=== PATIENT | male | born 1950 | race Caucasian/White ===

== ENCOUNTER → 2017-02-08 | Outpatient (CLI) | payer OTHER ==
[2017-02-08 08:45] LABS: ABSOLUTE BASOPHILS # (AUTO) 0.1 10^3/uL (0.0-0.2); ABSOLUTE EOSINOPHILS # (AUTO) 0.1 10^3/uL (0.0-0.6); ABSOLUTE LYMPHOCYTES (AUTO) 1.7 10^3/uL (0.5-4.7); ABSOLUTE MONOCYTES (AUTO) 0.6 10^3/uL (0.1-1.4); ABSOLUTE NEUT (AUTO) 4.3 10^3/uL (1.7-8.2); BASOPHILS % (AUTO) 0.8 % (0-2); EOSINOPHILS % (AUTO) 2.1 % (0-6); HEMATOCRIT 41.3 % (37.9-51.0); HEMOGLOBIN 14.2 g/dL (13.5-17.0); HGB HCT DIFFERENCE 1.3; LYMPHOCYTES % (AUTO) 24.2 % (13-45); MEAN CORPUSCULAR HEMOGLOBIN 31.3 pg (27.0-33.4); MEAN CORPUSCULAR HGB CONC 34.3 g/dL (32.0-36.0); MEAN CORPUSCULAR VOLUME 91 fl (80-97); MONOCYTES % (AUTO) 9.5 % (3-13); RED BLOOD COUNT 4.53 10^6/uL (4.35-5.55); RED CELL DISTRIBUTION WIDTH 13.7 % (11.5-14.0); SEGMENTED NEUTROPHILS % (AUTO) 63.4 % (42-78); WHITE BLOOD COUNT 6.8 10^3/uL (4.0-10.5)
[2017-02-08 09:16] LABS: ALANINE AMINOTRANSFERASE 41 U/L (21-72); ALBUMIN 3.8 g/dL (3.5-5.0); ALKALINE PHOSPHATASE 72 U/L (38-126); ANION GAP 12 (5-19); ASPARTATE AMINO TRANSFERASE 25 U/L (17-59); BILIRUBIN,DIRECT 0.3 mg/dL (0.0-0.4); BILIRUBIN,TOTAL 0.7 mg/dL (0.2-1.3); BLOOD UREA NITROGEN 19 mg/dL (7-20); CALCIUM 9.4 mg/dL (8.4-10.2); CARBON DIOXIDE 25 mmol/L (22-30); CHLORIDE 107 mmol/L (98-107); CHOLESTEROL 144.61 mg/dL (0-200); CREATININE RESULT 1.07 mg/dL (0.52-1.25); Direct HDL 54 mg/dL (>40); GLUCOSE 139 mg/dL (75-110); POTASSIUM 4.2 mmol/L (3.6-5.0); SODIUM 143.8 mmol/L (137-145); TOTAL PROTEIN 6.9 g/dL (6.3-8.2); TRIGLYCERIDES 71 mg/dL (<150)
[2017-02-08 09:27] LABS: DIRECT LDL 68 mg/dL (<100)
== END ==
LOC: CCC 07:37
DX: I10 Essential (primary) hypertension (principal); E11.9 Type 2 diabetes mellitus without complications
CPT/HCPCS: 36415; 80053; 80061; 83036; 84153; 84443; 85025

== ENCOUNTER 2018-02-15 08:51 | Emergency (ER) | payer MEDICARE, OTHER ==
--- NOTE | 2018-02-15 10:03 | ER Document Report ---
ED General - General Chief Complaint: Ear Pain Stated Complaint: HEARING LOSS, POSSIBLE SNAKE BITE Time Seen by Provider: 02/15/18 09:23 Mode of Arrival: Ambulatory Information source: Patient Notes: 67-year-old male presents with complaints of new onset difficulty hearing right ear. Patient notes he was clearing his ear with a Q-tip got some wax and since then is unable to hear. 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 IN LAST 30 DAYS: No - HPI Onset: This morning Onset/Duration: Sudden Quality of pain: No pain Severity: Mild Pain Level: Denies Associated symptoms: Other Exacerbated by: Denies Relieved by: Denies Similar symptoms previously: No Recently seen / treated by doctor: No - Related Data Allergies/Adverse Reactions: No Known Allergies Allergy (Unverified 07/14/14 12:18) Past Medical History - Social History Smoking Status: Never Smoker Cigarette use (# per day): No Chew tobacco use (# tins/day): No Smoking Education Provided: No Frequency of alcohol use: None Drug Abuse: None Family History: DM Patient has suicidal ideation: No Patient has homicidal ideation: No - Past Medical History Cardiac Medical History: Reports: Hx Hypertension Endocrine Medical History: Reports: Hx Diabetes Mellitus Type 2 Renal/ Medical History: Denies: Hx Peritoneal Dialysis - Immunizations Hx Diphtheria, Pertussis, Tetanus Vaccination: Yes Review of Systems - Review of Systems Notes: REVIEW OF SYSTEMS: CONSTITUTIONAL : Denies fever, chills, or sweats. Denies recent illness. EENT: Difficulty hearing right ear CARDIOVASCULAR: Denies chest pain. Denies palpitations or racing or irregular heart beat. Denies ankle edema. RESPIRATORY: Denies cough, cold, or chest congestion. Denies shortness of breath, difficulty breathing, or wheezing. GASTROINTESTINAL: Denies abdominal pain or distention. Denies nausea, vomiting , or diarrhea. Denies blood in vomitus, stools, or per rectum. Denies black, tarry stools. Denies constipation. GENITOURINARY: Denies difficulty urinating, painful urination, burning, frequency, blood in urine, or discharge. MUSCULOSKELETAL: Denies back or neck pain or stiffness. Denies joint pain or swelling. SKIN: Denies rash, lesions or sores. HEMATOLOGIC : Denies easy bruising or bleeding. LYMPHATIC: Denies swollen, enlarged glands. NEUROLOGICAL: Denies confusion or altered mental status. Denies passing out or loss of consciousness. Denies dizziness or lightheadedness. Denies headache. Denies weakness or paralysis or loss of use of either side. Denies problems with gait or speech. Denies sensory loss, numbness, or tingling. Denies seizures. PSYCHIATRIC: Denies anxiety or stress. Denies depression, suicidal ideation, or homicidal ideation. ALL OTHER SYSTEMS REVIEWED AND NEGATIVE. Dictation was performed using [employer] recognition software PHYSICAL EXAMINATION: GENERAL: Well-appearing, well-nourished and in no acute distress. HEAD: Atraumatic, normocephalic. EYES: Pupils equal round and reactive to light, extraocular movements intact, sclera anicteric, conjunctiva are normal. ENT: Cerumen impaction of the right ear scarring tissue left ear. NECK: Normal range of motion, supple without lymphadenopathy LUNGS: Breath sounds clear to auscultation bilaterally and equal. No wheezes rales or rhonchi. HEART: Regular rate and rhythm without murmurs ABDOMEN: Soft, nontender, nondistended abdomen. No guarding, no rebound. No masses appreciated. Musculoskeletal: Normal range of motion, no pitting or edema. No cyanosis. NEUROLOGICAL: Cranial nerves grossly intact. Normal speech, normal gait. Normal sensory, motor exams PSYCH: Normal mood, normal affect. SKIN: Small puncture of the right anterior ankle no swelling no edema no drainage Physical Exam - Vital signs Vitals: Temp Pulse Resp BP Pulse Ox 98.3 F 78 18 173/87 H 95 02/15/18 08:58 02/15/18 08:58 02/15/18 08:58 02/15/18 08:58 02/15/18 08:58 Course - Re-evaluation Re-evalutation: 02/15/18 10:14 Patient snakebite is quite benign there is no sign of infectious process or venemous involvement, lab work ordered nonetheless to evaluate, his right ear had quite a bit of cerumen, this was flushed and patient notes symptoms have resolved completely and that he can hear with no difficulty now There is a small amount of ulceration from previous trauma that the patient caused from using a Q-tip will start him on oral antibiotics 02/15/18 10:16 02/15/18 17:16 After performing a Medical Screening Examination, I estimate there is LOW risk for malignant otitis media, mastoiditis, MENINGITIS, or ACUTE CORONARY SYNDROME , thus I consider the discharge disposition reasonable. I have reevaluated this patient multiple times and no significant life threatening changes are noted. The patient and I have discussed the diagnosis and risks, and we agree with discharging home to follow-up on an outpatient basis with the understanding that symptoms and presentations can change. We also discussed returning to the Emergency Department immediately if new or worsening symptoms occur. We have discussed the symptoms which are most concerning (e.g., high fevers, confusion) that necessitate immediate return. - Vital Signs Vital signs: Temp Pulse Resp BP Pulse Ox 99.4 F 75 18 145/82 H 95 02/15/18 10:42 02/15/18 10:42 02/15/18 08:58 02/15/18 10:42 02/15/18 10:42 - Laboratory Result Diagrams: 02/15/18 09:43 02/15/18 09:43 Laboratory results interpreted by me: 02/15/18 09:43 Glucose 195 H Procedures - Additional Procedures cerumen decompaction Time performed: 10:15 - using luke warm water the right ear was flushed and large cerumen removed Discharge - Discharge Clinical Impression: Impacted cerumen of right ear Loss of hearing Qualifiers: Hearing loss type: unspecified Laterality: right Qualified Code(s): H91.91 - Unspecified hearing loss, right ear Snake bite Qualifiers: Encounter type: initial encounter Qualified Code(s): W59.11XA - Bitten by nonvenomous snake, initial encounter Condition: Stable Disposition: HOME, SELF-CARE Instructions: Cerumen Impaction ([facility]) Prescriptions: Cephalexin Monohydrate [Keflex 500 mg Capsule] 500 mg PO Q6H 5 Days capsule Referrals: SHITAL BARKER MD [Primary Care Provider] - Follow up as needed
[2018-02-15 10:04] LABS: ABSOLUTE EOSINOPHILS # (AUTO) 0.1 10^3/uL (0.0-0.6); ABSOLUTE LYMPHOCYTES (AUTO) 1.5 10^3/uL (0.5-4.7); ABSOLUTE MONOCYTES (AUTO) 0.6 10^3/uL (0.1-1.4); ABSOLUTE NEUT (AUTO) 4.6 10^3/uL (1.7-8.2); BASOPHILS % (AUTO) 0.6 % (0-2); EOSINOPHILS % (AUTO) 1.8 % (0-6); HEMATOCRIT 43.2 % (37.9-51.0); HEMOGLOBIN 14.6 g/dL (13.5-17.0); LYMPHOCYTES % (AUTO) 22.5 % (13-45); MEAN CORPUSCULAR HEMOGLOBIN 30.6 pg (27.0-33.4); MEAN CORPUSCULAR HGB CONC 33.8 g/dL (32.0-36.0); MEAN CORPUSCULAR VOLUME 91 fl (80-97); MONOCYTES % (AUTO) 8.6 % (3-13); PLATELET COUNT 157 10^3/uL (150-450); RED BLOOD COUNT 4.77 10^6/uL (4.35-5.55); RED CELL DISTRIBUTION WIDTH 13.3 % (11.5-14.0); SEGMENTED NEUTROPHILS % (AUTO) 66.5 % (42-78); TOTAL CELLS COUNTED % (AUTO) 100 %; WHITE BLOOD COUNT 6.9 10^3/uL (4.0-10.5)
[2018-02-15 10:21] LABS: INTERNATIONAL RATION (INR) 0.99; PROTHROMBIN TIME 13.6 SEC (11.4-15.4)
[2018-02-15 10:25] LABS: ALANINE AMINOTRANSFERASE 41 U/L (21-72); ALBUMIN 3.8 g/dL (3.5-5.0); ALKALINE PHOSPHATASE 61 U/L (38-126); ANION GAP 10 (5-19); ASPARTATE AMINO TRANSFERASE 24 U/L (17-59); BILIRUBIN,DIRECT 0.3 mg/dL (0.0-0.4); BILIRUBIN,TOTAL 0.6 mg/dL (0.2-1.3); BLOOD UREA NITROGEN 18 mg/dL (7-20); CALCIUM 9.1 mg/dL (8.4-10.2); CARBON DIOXIDE 28 mmol/L (22-30); CHLORIDE 105 mmol/L (98-107); GLUCOSE 195 mg/dL (75-110); POTASSIUM 4.1 mmol/L (3.6-5.0); TOTAL PROTEIN 6.8 g/dL (6.3-8.2)
[2018-02-15 10:47] VITALS: BP 145/82
== END 2018-02-15 11:01 | disposition home or self-care (01) ==
LOC: ER 08:51
DX: H61.21 Impacted cerumen, right ear (principal); H91.91 Unspecified hearing loss, right ear; S91.051A Open bite, right ankle, initial encounter; W59.11XA Bitten by nonvenomous snake, initial encounter; I10 Essential (primary) hypertension; E11.9 Type 2 diabetes mellitus without complications
CPT/HCPCS: 36415; 80053; 85025; 85610; 99283

== ENCOUNTER 2018-10-09 10:19 | Emergency (ER) | payer MEDICARE, OTHER ==
--- NOTE | 2018-10-09 10:53 | ER Document Report ---
ED Medical Screen (RME) - General Chief Complaint: Head Injury with LOC Stated Complaint: HEAD INJURY Time Seen by Provider: 10/09/18 10:32 TRAVEL OUTSIDE OF THE [place] IN LAST 30 DAYS: No - Related Data Allergies/Adverse Reactions: No Known Allergies Allergy (Verified 10/09/18 10:19) Past Medical History - Past Medical History Cardiac Medical History: Reports: Hx Hypertension Endocrine Medical History: Reports: Hx Diabetes Mellitus Type 2 Renal/ Medical History: Denies: Hx Peritoneal Dialysis - Immunizations Hx Diphtheria, Pertussis, Tetanus Vaccination: Yes Physical Exam - Vital signs Vitals: Temp Pulse Resp BP Pulse Ox 98.8 F 90 18 163/85 H 94 10/09/18 10:24 10/09/18 10:24 10/09/18 10:24 10/09/18 10:24 10/09/18 10:24 Course - Re-evaluation Re-evalutation: 10/09/18 10:53 68-year-old man that presents for evaluation of a fall hitting the side of a table with positive loss of consciousness. I have seen and evaluated this patient in rapid medical screening exam fashion. I have initiated a evaluation and workup, this patient will require further investigation evaluation and disposition determination by secondary provider. - Vital Signs Vital signs: Temp Pulse Resp BP Pulse Ox 98.8 F 90 18 163/85 H 94 10/09/18 10:24 10/09/18 10:24 10/09/18 10:24 10/09/18 10:24 10/09/18 10:24 Doctor's Discharge - Discharge Referrals: SHITAL BARKER MD [Primary Care Provider] - Follow up as needed
[2018-10-09] MEDS ORDERED: LIDOCAINE 4%/TETRACAINE 0.5%/EPI 0.18% 5 ML TOPICAL SOLN TOP ONE (10:54)
--- NOTE | 2018-10-09 11:34 | RADIOLOGY REPORT (SQ) ---
EXAM DESCRIPTION: CT HEAD WITHOUT COMPLETED DATE/TIME: 10/09/2018 11:14 am REASON FOR STUDY: fall, LOC COMPARISON: None. TECHNIQUE: Axial images acquired through the brain without intravenous contrast. Images reviewed wi th bone, brain and subdural windows. Additional sagittal and coronal reconstructions were generated. Images stored on PACS. All CT scanners at this facility use dose modulation, iterative reconstruction, and/or weight based d osing when appropriate to reduce radiation dose to as low as reasonably achievable (ALARA). [facility]: Dose Right [facility]: CareDose [facility]: Dose Right [facility]: Teradose 4D [facility]: [employer] RADIATION DOSE: CT Rad equipment meets quality standard of care and radiation dose reduction techniq ues were employed. CTDIvol: 53.2 mGy. DLP: 1044 mGy-cm. mGy. LIMITATIONS: None. FINDINGS: VENTRICLES: Normal size and contour. CEREBRUM: No masses. No hemorrhage. No midline shift. No evidence for acute infarction. Normal gra y/white matter differentiation. No areas of low density in the white matter. CEREBELLUM: No masses. No hemorrhage. No alteration of density. No evidence for acute infarction. EXTRAAXIAL SPACES: No fluid collections. No masses. ORBITS AND GLOBE: No intra- or extraconal masses. Normal contour of globe without masses. CALVARIUM: No fracture. PARANASAL SINUSES: No fluid or mucosal thickening. SOFT TISSUES: No mass or hematoma. OTHER: No other significant finding. IMPRESSION: NO ACUTE INTRACRANIAL IMAGING FINDINGS. EVIDENCE OF ACUTE STROKE: NO. COMMENT: Quality ID # [id number]: Final reports with documentation of one or more dose reduction techniques (e.g., Automated exposure control, adjustment of the mA and/or kV according to patient size, use of iterative reconstruction technique) TECHNICAL DOCUMENTATION: JOB ID: [id number] [employer]- All Rights Reserved Reading location - IP/workstation name: [email or web address]
--- NOTE | 2018-10-09 11:37 | RADIOLOGY REPORT (SQ) ---
EXAM DESCRIPTION: CT CERVICAL SPINE WITHOUT COMPLETED DATE/TIME: 10/09/2018 11:14 am REASON FOR STUDY: fall, LOC COMPARISON: None. TECHNIQUE: Axial images acquired through the cervical spine without intravenous contrast. Images re viewed with lung, soft tissue and bone windows. Reconstructed coronal and sagittal MPR images review ed. Images stored on PACS. All CT scanners at this facility use dose modulation, iterative reconstruction, and/or weight based d osing when appropriate to reduce radiation dose to as low as reasonably achievable (ALARA). [facility]: Dose Right [facility]: CareDose [facility]: Dose Right [facility]: Teradose 4D [facility]: [employer] RADIATION DOSE: CT Rad equipment meets quality standard of care and radiation dose reduction techniq ues were employed. CTDIvol: 24.2 mGy. DLP: 488 mGy-cm. mGy. LIMITATIONS: None. FINDINGS: ALIGNMENT: Anatomic. MINERALIZATION: Normal. VERTEBRAL BODIES: No fractures or dislocation. DISCS: Moderate multilevel disc degenerative disease. FACETS, LATERAL MASSES, POSTERIOR ELEMENTS: No fractures. No dislocation. No acute findings. HARDWARE: None in the spine. VISUALIZED RIBS: No fractures. LUNG APICES AND SOFT TISSUES: No significant or acute findings. OTHER: No other significant finding. IMPRESSION: No fracture or static subluxation of the cervical spine. TECHNICAL DOCUMENTATION: JOB ID: [id number] Quality ID # [id number]: Final reports with documentation of one or more dose reduction techniques (e.g., Au tomated exposure control, adjustment of the mA and/or kV according to patient size, use of iterative reconstruction technique) 2010 [employer]- All Rights Reserved Reading location - IP/workstation name: [email or web address]
--- NOTE | 2018-10-09 11:48 | ER Document Report ---
ED General - General Chief Complaint: Head Injury with LOC Stated Complaint: HEAD INJURY Time Seen by Provider: 10/09/18 10:32 Mode of Arrival: Ambulatory Information source: Patient Notes: 68-year-old male presents emergency department status post fall. Patient states that he was trying to get up onto a chair when he slipped and fell backward hitting his head on a table. Family witnessed the fall. They state that the patient did lose consciousness. Patient was able to get up afterwards. Family noticed a laceration to his scalp and wanted him to come to the emergency department for evaluation. Tetanus is up-to-date. Patient denies any vision changes, speech changes, numbness, tingling, weakness. Patient denies being on any anticoagulants. TRAVEL OUTSIDE OF THE [place] IN LAST 30 DAYS: No - HPI Onset: Just prior to arrival Onset/Duration: Sudden Quality of pain: Dull Severity: Mild Associated symptoms: None Exacerbated by: Denies Relieved by: Denies Similar symptoms previously: No Recently seen / treated by doctor: No - Related Data Allergies/Adverse Reactions: No Known Allergies Allergy (Verified 10/09/18 10:19) Past Medical History - General Information source: Patient - Social History Smoking Status: Never Smoker Family History: DM Patient has suicidal ideation: No Patient has homicidal ideation: No - Past Medical History Cardiac Medical History: Reports: Hx Hypertension Endocrine Medical History: Reports: Hx Diabetes Mellitus Type 2 Renal/ Medical History: Denies: Hx Peritoneal Dialysis - Immunizations Hx Diphtheria, Pertussis, Tetanus Vaccination: Yes Review of Systems - Review of Systems EENT: No symptoms reported Cardiovascular: No symptoms reported Respiratory: No symptoms reported Gastrointestinal: No symptoms reported Genitourinary: No symptoms reported Musculoskeletal: No symptoms reported Skin: Lesions Hematologic/Lymphatic: No symptoms reported Neurological/Psychological: No symptoms reported -: Yes All other systems reviewed and negative Physical Exam - Vital signs Vitals: Temp Pulse Resp BP Pulse Ox 98.8 F 90 18 163/85 H 94 10/09/18 10:24 10/09/18 10:24 10/09/18 10:24 10/09/18 10:24 10/09/18 10:24 - Notes Notes: PHYSICAL EXAMINATION: GENERAL: Well-appearing, well-nourished and in no acute distress. HEAD: normocephalic. 0.25cm superficial Laceration to the posterior scalp. EYES: Pupils equal round and reactive to light, extraocular movements intact, sclera anicteric, conjunctiva are normal. ENT: Nares patent, oropharynx clear without exudates. Moist mucous membranes. NECK: Normal range of motion, supple without lymphadenopathy. No cervical spine tenderness to palpation. LUNGS: Breath sounds clear to auscultation bilaterally and equal. No wheezes rales or rhonchi. HEART: Regular rate and rhythm without murmurs ABDOMEN: Soft, nontender, nondistended abdomen. No guarding, no rebound. No masses appreciated. Musculoskeletal: Normal range of motion, no pitting or edema. No cyanosis. NEUROLOGICAL: Cranial nerves grossly intact. Normal speech, normal gait. Normal sensory, motor exams PSYCH: Normal mood, normal affect. SKIN: Warm, Dry, normal turgor, 0.25cm superficial laceration to the posterior scalp. Course - Re-evaluation Re-evalutation: 10/09/18 11:48 Laceration is very superficial. Non-gaping. Sutre/staple not necessary. 10/09/18 12:19 CT head, cervical spine, pelvis are all within normal limits. No acute process identified. Patient will be discharged home to follow-up with his primary care physician this week. - Vital Signs Vital signs: Temp Pulse Resp BP Pulse Ox 98.8 F 90 18 163/85 H 94 10/09/18 10:24 10/09/18 10:24 10/09/18 10:24 10/09/18 10:24 10/09/18 10:24 Discharge - Discharge Clinical Impression: Laceration Fall Qualifiers: Encounter type: initial encounter Qualified Code(s): W19.XXXA - Unspecified fall, initial encounter Condition: Good Disposition: HOME, SELF-CARE Instructions: Laceration Care ([facility]) Additional Instructions: Follow up with your primary care physician this week. Take medication as directed. Take over the counter medication as needed for discomfort. Return to the emergency department for fever, chills, worsening headache, vision changes, speech changes, numbness, tingling, or weakness. Referrals: SHITAL BARKER MD [Primary Care Provider] - Follow up as needed
--- NOTE | 2018-10-09 11:53 | RADIOLOGY REPORT (SQ) ---
EXAM DESCRIPTION: PELVIS AP COMPLETED DATE/TIME: 10/09/2018 11:29 am REASON FOR STUDY: fall, LOC COMPARISON: None. NUMBER OF VIEWS: One view TECHNIQUE: AP Pelvis LIMITATIONS: None. FINDINGS: No acute fracture or bony abnormality identified. The SI joints are symmetrical. IMPRESSION: Normal pelvis. TECHNICAL DOCUMENTATION: JOB ID: [id number] SC-69 2010 [employer]- All Rights Reserved Reading location - IP/workstation name: [email or web address]
[2018-10-09 12:34] VITALS: BP 154/86
== END 2018-10-09 12:34 | disposition home or self-care (01) ==
LOC: ER 10:19
DX: S01.01XA Laceration without foreign body of scalp, initial encounter (principal); W01.190A Fall on same level from slipping, tripping and stumbling with subsequent striking against furniture, initial encounter; Y93.89 Activity, other specified; R55 Syncope and collapse; E11.9 Type 2 diabetes mellitus without complications; I10 Essential (primary) hypertension
CPT/HCPCS: 70450; 72125; 72170; 99284; J3490

== ENCOUNTER 2019-01-07 07:30 | Emergency (ER) | payer MEDICARE, OTHER ==
--- NOTE | 2019-01-07 07:46 | ER Document Report ---
ED General - General Chief Complaint: Flank Pain Stated Complaint: URINARY ISSUE Time Seen by Provider: 01/07/19 07:44 Primary Care Provider: SHITAL BARKER MD [Primary Care Provider] - Follow up in 3-5 days Notes: Patient is a 68-year-old male that presents to the emergency department for chief complaint of right flank pain. Patient reports his pain started 3 or 4 days ago describes as a constant ache is been going on over the period of time. Denies any injuries that he is aware of. He has a history of kidney stones, but he states that it does not feel as bad as when he had a kidney stone several years ago. Denies any any fevers, chills, admits to having some nausea but no vomiting. Denies any diarrhea. Denies any chest pain, shortness of breath, difficulty breathing. Past Medical History: Hypertension, diabetes mellitus, kidney stones Past Surgical History: Denies surgical history Social History: Denies tobacco, alcohol or drug use. Family History: Reviewed and noncontributory for presenting illness Allergies: Reviewed, see documented allergy list. REVIEW OF SYSTEMS: Other than noted above, the 12 point review of systems was reviewed with the patient and were negative, all pertinent findings are included in the HPI. PHYSICAL EXAMINATION: Vital signs reviewed, nursing noted reviewed. GENERAL: Well-appearing, well-nourished and in no acute distress. HEAD: Atraumatic, normocephalic. EYES: Eyes appear normal, extraocular movements intact, sclera anicteric, conjunctiva are normal. ENT: nares patent, oropharynx clear without exudates. Moist mucous membranes. NECK: Normal range of motion, supple without lymphadenopathy LUNGS: Breath sounds clear to auscultation bilaterally and equal. No wheezes rales or rhonchi. HEART: Regular rate and rhythm without murmurs ABDOMEN: Soft, right flank tenderness with palpation, no anterior abdominal tenderness, normoactive bowel sounds. No rebound, guarding, or rigidity. No masses appreciated. EXTREMITIES: Nontender, good range of motion, no pitting or edema. NEUROLOGICAL: No focal neurological deficits. Moves all extremities spontaneously Motor and sensory grossly intact on exam. PSYCH: Normal mood, normal affect. SKIN: Warm, Dry, normal turgor, no rashes or lesions noted on exposed skin TRAVEL OUTSIDE OF THE [place] IN LAST 30 DAYS: No - Related Data Allergies/Adverse Reactions: No Known Allergies Allergy (Verified 01/07/19 07:31) Past Medical History - Social History Smoking Status: Never Smoker Family History: Reviewed & Not Pertinent, DM - Past Medical History Cardiac Medical History: Reports: Hx Hypertension Endocrine Medical History: Reports: Hx Diabetes Mellitus Type 2 Renal/ Medical History: Denies: Hx Peritoneal Dialysis - Immunizations Hx Diphtheria, Pertussis, Tetanus Vaccination: Yes Physical Exam - Vital signs Vitals: Temp Pulse Resp BP Pulse Ox 97.7 F 79 16 162/107 H 96 01/07/19 07:34 01/07/19 07:34 01/07/19 07:34 01/07/19 07:34 01/07/19 07:34 Course - Re-evaluation Re-evalutation: Patient seen and examined vital signs reviewed. Laboratory data and imaging were ordered as appropriate for the patient's presenting symptoms and complaint, with consideration of any critical or life threatening conditions that may be associated with their obtained history and exam as noted above. Patient was treated with IV fluids and Toradol Results were reviewed when available and demonstrated negative CT imaging, no signs of renal stone or obstruction, blood work and urinalysis were negative as well The patient was re-evaluated and was improved, was given a dose of Tylenol and Robaxin Evaluation was most consistent with right flank pain, uncertain etiology, workup was negative today, will prescribe Robaxin, advised Flomax as well given the patient stated he was having some incomplete bladder voiding, and advised follow-up with primary care. Results were discussed with the patient at this point, after careful consideration I feel that that patient can be discharged from the emergency department, the patient was educated treatments and reasons to return to the emergency department based on their presumed diagnosis as noted above, they were advised to followup with a primary care physician in 2-3 days. Patient was agreeable to plan of care. *Note is created using voice recognition software and may contain spelling, syntax or grammatical errors. Abdomen/Pelvis CT 01/07/19 07:55 IMPRESSION: Nonobstructing renal calculi. No acute findings. Abdomen/Pelvis CT 01/07/19 07:55 IMPRESSION: Nonobstructing renal calculi. No acute findings. - Vital Signs Vital signs: Temp Pulse Resp BP Pulse Ox 97.9 F 71 17 159/95 H 98 01/07/19 09:43 01/07/19 09:43 01/07/19 09:43 01/07/19 09:43 01/07/19 09:43 - Laboratory Result Diagrams: 01/07/19 08:24 01/07/19 08:24 Discharge - Discharge Clinical Impression: Flank pain Condition: Stable Disposition: HOME, SELF-CARE Instructions: Flank Pain ([facility]) Additional Instructions: Take all medications as prescribed, if your symptoms worsen or not improving, do not hesitate to return to the emergency department to be reevaluated. Please return to the emergency department if you have any worsening, or concern of your symptoms. Please return to the emergency department if you develop chest pain, difficulty breathing, severe abdominal pain, or ongoing vomiting. Please follow-up with your primary care physician in 2-3 days and any other recommended physicians. If prescribed, take all medications as directed. If you have any questions or concerns do not hesitate to return the emergency department for evaluation. Prescriptions: Methocarbamol [Robaxin 500 mg Tablet] 500 mg PO TID PRN #20 tablet PRN Reason: back pain Tamsulosin HCl [Flomax] 0.4 mg PO DAILY #15 cap.er.24h Referrals: SHITAL BARKER MD [Primary Care Provider] - Follow up in 3-5 days
[2019-01-07] MEDS ORDERED: NORMAL SALINE 1000 ML 1,000 ML IV ONE (07:55)
[2019-01-07] MEDS ORDERED: KETOROLAC TROMETHAMINE INJ/PF 30 MG/1 ML SDV IV ONE (07:55)
[2019-01-07 08:09] LABS: APPEARANCE,URINE CLEAR; BILIRUBIN,URINE NEGATIVE (NEGATIVE); COLOR,URINE YELLOW; GLUCOSE, URINE NEGATIVE (NEGATIVE); KETONES,URINE NEGATIVE (NEGATIVE); LEUKOCYTE ESTERASE,URINE NEGATIVE (NEGATIVE); NITRITE,URINE NEGATIVE (NEGATIVE); PROTEIN,URINE NEGATIVE (NEGATIVE); URINE SPECIFIC GRAVITY 1.014; UROBILINOGEN,URINE NEGATIVE mg/dL (<2.0)
[2019-01-07 08:44] LABS: ABSOLUTE EOSINOPHILS # (AUTO) 0.1 10^3/uL (0.0-0.6); ABSOLUTE LYMPHOCYTES (AUTO) 1.2 10^3/uL (0.5-4.7); ABSOLUTE MONOCYTES (AUTO) 0.5 10^3/uL (0.1-1.4); ABSOLUTE NEUT (AUTO) 3.6 10^3/uL (1.7-8.2); BASOPHILS % (AUTO) 0.5 % (0-2); EOSINOPHILS % (AUTO) 1.4 % (0-6); HEMATOCRIT 43.2 % (37.9-51.0); HEMOGLOBIN 14.8 g/dL (13.5-17.0); LYMPHOCYTES % (AUTO) 21.6 % (13-45); MEAN CORPUSCULAR HEMOGLOBIN 31.6 pg (27.0-33.4); MEAN CORPUSCULAR HGB CONC 34.3 g/dL (32.0-36.0); MEAN CORPUSCULAR VOLUME 92 fl (80-97); MONOCYTES % (AUTO) 9.4 % (3-13); PLATELET COUNT 158 10^3/uL (150-450); RED CELL DISTRIBUTION WIDTH 13.9 % (11.5-14.0); SEGMENTED NEUTROPHILS % (AUTO) 67.1 % (42-78); TOTAL CELLS COUNTED % (AUTO) 100 %; WHITE BLOOD COUNT 5.4 10^3/uL (4.0-10.5)
--- NOTE | 2019-01-07 08:47 | RADIOLOGY REPORT (SQ) ---
EXAM DESCRIPTION: CT ABD/PELVIS NO ORAL OR IV COMPLETED DATE/TIME: 01/07/2019 8:11 am REASON FOR STUDY: right flank pain COMPARISON: None. TECHNIQUE: CT scan of the abdomen and pelvis performed without intravenous or oral contrast. Images reviewed with lung, soft tissue, and bone windows. Reconstructed coronal and sagittal MPR images revi ewed. All images stored on PACS. All CT scanners at this facility use dose modulation, iterative reconstruction, and/or weight based d osing when appropriate to reduce radiation dose to as low as reasonably achievable (ALARA). [facility]: Dose Right [facility]: CareDose [facility]: Dose Right [facility]: Teradose 4D [facility]: Smart [facility] RADIATION DOSE: CT Rad equipment meets quality standard of care and radiation dose reduction techniq ues were employed. CTDIvol: 17.8 mGy. DLP: 1105 mGy-cm.mGy. LIMITATIONS: None. FINDINGS: LOWER CHEST: No significant findings. No nodules or infiltrates. NON-CONTRASTED LIVER, SPLEEN, ADRENALS: Evaluation limited by lack of IV contrast. No identified sign ificant masses. PANCREAS: No masses. No peripancreatic inflammatory changes. GALLBLADDER: No identified stones by CT criteria. No inflammatory changes to suggest cholecystitis. RIGHT KIDNEY AND URETER: No suspicious masses. Assessment limited by lack of IV contrast. Renal meghan culi measuring up to 1 mm. No hydronephrosis or hydroureter. LEFT KIDNEY AND URETER: No suspicious masses. Assessment limited by lack of IV contrast. Renal calc esthela measuring 3 mm. No hydronephrosis or hydroureter. AORTA AND RETROPERITONEUM: No aneurysm. No retroperitoneal masses or adenopathy. BOWEL AND PERITONEAL CAVITY: No obvious masses or inflammatory changes. No free fluid. APPENDIX: Normal. PELVIS, BLADDER, AND ABDOMINAL WALL:No abnormal masses. No free fluid. Bladder normal. BONES: No significant findings. OTHER: No other significant finding. IMPRESSION: Nonobstructing renal calculi. No acute findings. COMMENT: Quality ID # [id number]: Final reports with documentation of one or more dose reduction techniques (e.g., Automated exposure control, adjustment of the mA and/or kV according to patient size, use of iterative reconstruction technique) TECHNICAL DOCUMENTATION: JOB ID: [id number] [employer]- All Rights Reserved Reading location - IP/workstation name: [email or web address]
[2019-01-07 08:58] LABS: ALANINE AMINOTRANSFERASE 52 U/L (21-72); ALBUMIN 3.8 g/dL (3.5-5.0); ALKALINE PHOSPHATASE 70 U/L (38-126); ANION GAP 10 (5-19); ASPARTATE AMINO TRANSFERASE 30 U/L (17-59); BILIRUBIN,DIRECT 0.3 mg/dL (0.0-0.4); BILIRUBIN,TOTAL 0.7 mg/dL (0.2-1.3); BLOOD UREA NITROGEN 19 mg/dL (7-20); CALCIUM 9.2 mg/dL (8.4-10.2); CARBON DIOXIDE 25 mmol/L (22-30); CHLORIDE 106 mmol/L (98-107); GLUCOSE 110 mg/dL (75-110); POTASSIUM 4.2 mmol/L (3.6-5.0); SODIUM 140.7 mmol/L (137-145); TOTAL PROTEIN 6.9 g/dL (6.3-8.2)
[2019-01-07] MEDS ORDERED: METHOCARBAMOL 500 MG TABLET PO ONE (09:06)
[2019-01-07] MEDS ORDERED: ACETAMINOPHEN 325 MG TABLET PO ONE (09:06)
[2019-01-07 09:45] VITALS: BP 159/95
== END 2019-01-07 09:45 | disposition home or self-care (01) ==
LOC: ER 07:30
DX: R10.9 Unspecified abdominal pain (principal); I10 Essential (primary) hypertension; E11.9 Type 2 diabetes mellitus without complications; Z87.442 Personal history of urinary calculi
CPT/HCPCS: 99284; 96361; 96374; 36415; 87086; 85025; 80053; 81001; 74176; A9270; J1885; J7030

== ENCOUNTER 2019-03-10 08:40 | Inpatient (IN) | payer MEDICARE, OTHER ==
[2019-03-10 09:48] LABS: ABSOLUTE EOSINOPHILS # (AUTO) 0.1 10^3/uL (0.0-0.6); ABSOLUTE LYMPHOCYTES (AUTO) 1.3 10^3/uL (0.5-4.7); ABSOLUTE MONOCYTES (AUTO) 0.6 10^3/uL (0.1-1.4); ABSOLUTE NEUT (AUTO) 4.7 10^3/uL (1.7-8.2); BASOPHILS % (AUTO) 0.7 % (0-2); HEMATOCRIT 43.1 % (37.9-51.0); LYMPHOCYTES % (AUTO) 18.8 % (13-45); MEAN CORPUSCULAR HEMOGLOBIN 31.7 pg (27.0-33.4); MEAN CORPUSCULAR HGB CONC 34.7 g/dL (32.0-36.0); MEAN CORPUSCULAR VOLUME 91 fl (80-97); MONOCYTES % (AUTO) 8.3 % (3-13); PLATELET COUNT 172 10^3/uL (150-450); RED BLOOD COUNT 4.72 10^6/uL (4.35-5.55); RED CELL DISTRIBUTION WIDTH 13.9 % (11.5-14.0); SEGMENTED NEUTROPHILS % (AUTO) 70.2 % (42-78); TOTAL CELLS COUNTED % (AUTO) 100 %; WHITE BLOOD COUNT 6.7 10^3/uL (4.0-10.5)
[2019-03-10 10:12] LABS: ALANINE AMINOTRANSFERASE 30 U/L (21-72); ALKALINE PHOSPHATASE 66 U/L (38-126); ANION GAP 11 (5-19); ASPARTATE AMINO TRANSFERASE 22 U/L (17-59); BILIRUBIN,DIRECT 0.3 mg/dL (0.0-0.4); BILIRUBIN,TOTAL 0.9 mg/dL (0.2-1.3); BLOOD UREA NITROGEN 24 mg/dL (7-20); CALCIUM 9.4 mg/dL (8.4-10.2); CARBON DIOXIDE 22 mmol/L (22-30); CHLORIDE 108 mmol/L (98-107); CREATINE KINASE 72 U/L (55-170); GLUCOSE 108 mg/dL (75-110); SODIUM 141.4 mmol/L (137-145); TOTAL PROTEIN 7.2 g/dL (6.3-8.2)
[2019-03-10 10:24] LABS: CREATINE KINASE MB 0.35 ng/mL (<4.55); TROPONIN I < 0.012 ng/mL
--- NOTE | 2019-03-10 10:27 | ER Document Report ---
ED Neuro Symptoms/Deficit - General Chief Complaint: Dizziness Stated Complaint: GENERAL WEAKNESS Time Seen by Provider: 03/10/19 10:13 Primary Care Provider: SHITAL BARKER MD [Primary Care Provider] - Follow up as needed TRAVEL OUTSIDE OF THE [place] IN LAST 30 DAYS: No - HPI Notes: Patient is a 69-year-old male that presents to the emergency department for chief complaint of dizziness. Patient reports dizziness with position changes for the week. He states that it feels like the room is spinning. It does seem to be improved when he is looking down and worse when he looks up. The dizziness fluctuates in intensity but has been constant for the last week. He also has noticed intermittent numbness in his left hand and arm. The numbness in the hand began a few days ago and has also been fluctuating. Patient's states for the last few days he has been having a hard time ambulating and seems to be falling to his left side. Patient began having hallucinations of spiders that family noticed today. He has not had any chest pain, shortness of breath, vomiting, or fevers. He does report chills intermittently over the last few days as well. Patient has no personal history of stroke. Patient is also complaining of headache that has been mild throbbing and located on the right side of his head. Headache is also been intermittent for the last few days. He denies any vision or speech changes. Past Medical History: Hypertension, diabetes Past Surgical History: Reviewed in chart Social History: Denies drugs alcohol and tobacco Family History: Reviewed and noncontributory for presenting illness Allergies: Reviewed, see documented allergy list. REVIEW OF SYSTEMS: CONSTITUTIONAL : No fever chills No diaphoresis No recent illness EENT: No vision changes No congestion No sore throat CARDIOVASCULAR: No chest pain No palpitations RESPIRATORY: No shortness of breath No cough No difficulty breathing GASTROINTESTINAL: No abdominal pain No nausea No vomiting No diarrhea GENITOURINARY: No dysuria No hematuria No difficulty urinating MUSCULOSKELETAL: No back pain No leg pain No arm pain SKIN: No rashes No lesions LYMPHATIC: No swollen, enlarged glands. NEUROLOGICAL: No lightheadedness headache No weakness paresthesias Dizziness PSYCHIATRIC: No anxiety No depression PHYSICAL EXAMINATION: Vital signs reviewed, nursing noted reviewed. GENERAL: Well-appearing, well-nourished and in no acute distress. HEAD: Atraumatic, normocephalic. EYES: No nystagmus, eyes appear normal, extraocular movements intact, sclera anicteric, conjunctiva are normal. ENT: Mild nasal mucosal edema, nares patent, oropharynx clear without exudates. Moist mucous membranes. NECK: Negative for meningismus, normal range of motion, supple without lymphadenopathy LUNGS: Breath sounds clear to auscultation bilaterally and equal. No wheezes rales or rhonchi. HEART: Regular rate and rhythm without murmurs ABDOMEN: Protuberant abdomen, soft, nontender, normoactive bowel sounds. No rebound, guarding, or rigidity. No masses appreciated. EXTREMITIES: Nontender, good range of motion, no pitting or edema. NEUROLOGICAL: No focal motor deficit. Left arm paresthesia, mild left arm ataxia. No lower extremity weakness or numbness. NIH=2 PSYCH: Normal mood, normal affect. SKIN: Warm, Dry, normal turgor, no rashes or lesions noted on exposed skin - Related Data Allergies/Adverse Reactions: No Known Allergies Allergy (Verified 03/10/19 08:41) Past Medical History - Social History Smoking Status: Unknown if Ever Smoked Family History: Reviewed & Not Pertinent, DM Patient has suicidal ideation: No Patient has homicidal ideation: No - Past Medical History Cardiac Medical History: Reports: Hx Hypertension Endocrine Medical History: Reports: Hx Diabetes Mellitus Type 2 Renal/ Medical History: Denies: Hx Peritoneal Dialysis - Immunizations Hx Diphtheria, Pertussis, Tetanus Vaccination: Yes Physical Exam - Vital signs Vitals: Temp Pulse Resp BP Pulse Ox 98.1 F 87 18 157/89 H 98 03/10/19 08:44 03/10/19 08:44 03/10/19 08:44 03/10/19 08:44 03/10/19 08:44 Course - Re-evaluation Re-evalutation: 03/10/19 12:15 Vitals reviewed. Nursing notes reviewed. Patient has an NIH of 2 and his symptoms have been ongoing for the last week. He is not a TPA candidate because of the onset of symptoms as well as his low NIH. I am concerned that his vertigo and left extremity ataxia are related to possible central vertebrob asilar insufficiency. Patient CT brain is unremarkable. The remainder of his blood work is unremarkable as well. He was given aspirin for possible stroke. He was given Tylenol for his headache. His care was discussed with Dr. Barker who has accepted admission. Patient in agreement with plan of care and stable at time of admission. Laboratory 03/10/19 03/10/19 03/10/19 09:37 09:37 09:37 WBC 6.7 RBC 4.72 Hgb 15.0 Hct 43.1 MCV 91 MCH 31.7 MCHC 34.7 RDW 13.9 Plt Count 172 Seg Neutrophils % 70.2 Lymphocytes % 18.8 Monocytes % 8.3 Eosinophils % 2.0 Basophils % 0.7 Absolute Neutrophils 4.7 Absolute Lymphocytes 1.3 Absolute Monocytes 0.6 Absolute Eosinophils 0.1 Absolute Basophils 0.0 Sodium 141.4 Potassium 4.0 Chloride 108 H Carbon Dioxide 22 Anion Gap 11 BUN 24 H Creatinine 1.11 Est GFR ( Amer) > 60 Est GFR (Non-Af Amer) > 60 Glucose 108 Calcium 9.4 Total Bilirubin 0.9 Direct Bilirubin 0.3 Neonat Total Bilirubin Not Reportable Neonat Direct Bilirubin Not Reportable Neonat Indirect Bili Not Reportable AST 22 ALT 30 Alkaline Phosphatase 66 Creatine Kinase 72 CK-MB (CK-2) 0.35 Troponin I < 0.012 Total Protein 7.2 Albumin 4.0 Urine Color Urine Appearance Urine pH Ur Specific [place] Urine Protein Urine Glucose (UA) Urine Ketones Urine Blood Urine Nitrite Urine Bilirubin Urine Urobilinogen Ur Leukocyte Esterase Urine WBC (Auto) Urine RBC (Auto) U Hyaline Cast (Auto) Urine Mucus (Auto) Urine Ascorbic Acid 03/10/19 10:54 WBC RBC Hgb Hct MCV MCH MCHC RDW Plt Count Seg Neutrophils % Lymphocytes % Monocytes % Eosinophils % Basophils % Absolute Neutrophils Absolute Lymphocytes Absolute Monocytes Absolute Eosinophils Absolute Basophils Sodium Potassium Chloride Carbon Dioxide Anion Gap BUN Creatinine Est GFR ( Amer) Est GFR (Non-Af Amer) Glucose Calcium Total Bilirubin Direct Bilirubin Neonat Total Bilirubin Neonat Direct Bilirubin Neonat Indirect Bili AST ALT Alkaline Phosphatase Creatine Kinase CK-MB (CK-2) Troponin I Total Protein Albumin Urine Color YELLOW Urine Appearance CLEAR Urine pH 6.0 Ur Specific [place] 1.018 Urine Protein NEGATIVE Urine Glucose (UA) NEGATIVE Urine Ketones 20 H Urine Blood NEGATIVE Urine Nitrite NEGATIVE Urine Bilirubin NEGATIVE Urine Urobilinogen NEGATIVE Ur Leukocyte Esterase NEGATIVE Urine WBC (Auto) 1 Urine RBC (Auto) 1 U Hyaline Cast (Auto) 3 Urine Mucus (Auto) RARE Urine Ascorbic Acid NEGATIVE Head CT 03/10/19 00:00 IMPRESSION: No acute intracranial pathology. No noncontrast CT findings to explain headache. EVIDENCE OF ACUTE STROKE: NO. - Vital Signs Vital signs: Temp Pulse Resp BP Pulse Ox 98.1 F 87 18 157/89 H 98 03/10/19 08:44 03/10/19 08:44 03/10/19 08:44 03/10/19 08:44 03/10/19 08:44 - Laboratory Result Diagrams: 03/10/19 09:37 03/10/19 09:37 - EKG Interpretation by Me Additional EKG results interpreted by me: 03/10/19 10:28 Interpreted by myself [id number]: Normal sinus rhythm, rate 78, normal axis, no ectopy, no STEMI ED NIH Stroke Scale - NIH Stroke Scale *: 1. NIH scale should be completed with appropriate accompanying assessment tools. *: 2. The NIH should reflect what the patient is capable of doing and should not be coached by the clinician. 1a. Level of Consciousness: 0=Alert;keenly responsive -: 1=Drowsy -: 2=Obtunded -: 3=Coma/unresponsive or reflex to noxious stimuli. 1a. Responses: 0 1b. Orientation Questions: a. What month is it? -: b. How old are you? -: 0=Answers both questions correctly. -: 1=Answers one question correctly or patient is intubated or has orotracheal trauma. -: 2=Answers neither question correctly. 1b. Responses: 0 1c. Response to commands: a. Open and close eyes? -: b. Tool Radial Drill Press Set Up Operator and release hand? -: Credit is given despite weakness. Demonstration of task is permitted. Substitute command if hands cannot be used. -: 0=Performs both tasks correctly -: 1=Performs one task correctly -: 2=Performs neither task correctly 1c. Responses: 0 2. Gaze: Establish eye contact and instruct patient to "Follow my finger" -: 0=Normal -: 1=Partial gaze palsy. Gaze is abnormal in one or both eyes, but where forced deviation or total gaze paresis is not present. -: 2=Forced deviation or total gaze paresis. 2. Responses: 0 3. Visual Martini: Sees fingers in all four quadrants. -: 0=No visual loss. -: 1=Partial hemianopsia. -: 2=Complete hemianopsia. -: 3=Bilateral hemianopsia (including Cortical blindness) 3. Responses: 0 4. Facial Movement: Instruct patient to: -: a. Show me your teeth -: b. Raise your eyebrows -: c. Close your eyes -: d. Smile -: 0=Normal symmetrical movement -: 1=Minor paralysis (flattened nasolabial fold, asymmetry on smiling). -: 2=Partial paralysis (total or near total paralysis of lower face). -: 3=Complete paralysis of upper and lower face 4. Responses: 0 5. Motor functions (left arm): Alternate sides and extend each arm with palms down (90 degrees if sitting or 45 degrees for supine). -: 0=No drift;limb holds for full 10 seconds. -: 1=Drift; limb holds but drifts down before full 10 seconds, but does not hit bed. -: 2=Some effort against gravity; limb cannot get to or maintain position. -: 3=No effort against gravity; limb falls. -: 4=No movement. -: UN=Amputation, joint fusion, explain in comments. 5. Responses (left arm): 0 5. Motor Functions (right arm): Alternate sides and extend each arm with palms down (90 degrees if sitting or 45 degrees for supine). -: 0=No drift;limb holds for full 10 seconds. -: 1=Drift; limb holds but drifts down before full 10 seconds, but does not hit bed. -: 2=Some effort against gravity; limb cannot get to or maintain position. -: 3=No effort against gravity; limb falls. -: 4=No movement. -: UN=Amputation, joint fusion, explain in comments. 5. Responses (right arm): 0 6. Motor Functions (left leg): With patient lying supine, alternate sides and extend each leg (30 degrees always while supine). -: 0=No drift, leg holds position for full 5 seconds -: 1=Drift; leg falls before full 5 seconds but does not hit bed. -: 2=Some effort against gravity, leg falls to bed but some effort against gravity. -: 3=No effort against gravity, leg falls to bed immediately. -: 4=No movement. -: UN=Amputation, joint fusion; explain in comments. 6. Responses (left leg): 0 6. Motor Functions (right leg): With patient lying supine, alternate sides and extend each leg (30 degrees always while supine). -: 0=No drift, leg holds position for full 5 seconds -: 1=Drift; leg falls before full 5 seconds but does not hit bed. -: 2=Some effort against gravity, leg falls to bed but some effort against gravity. -: 3=No effort against gravity, leg falls to bed immediately. -: 4=No movement. -: UN=Amputation, joint fusion; explain in comments. 6. Responses (right leg): 0 7. Limb Ataxia: With eyes open instruct patient to: -: a. "Touch your finger to your nose". -: b. "Touch your heel to your jenkins" -: 0=Absent -: 1=Present in one limb. -: 2=Present in two limbs. -: UN=Amputation or joint fusion; explain in comments. 7. Responses: 1 7. If ataxia present choose as appropriate: Left arm 8. Sensory: Test sensation using pinprick or noxious stimuli. Test as many body parts as possible. -: 0=Normal;no sensory loss -: 1=Mile to moderate sensory loss (patient feels pin prick but is less sharp on affected side). -: 2=Severe or total sensory loss. 8. Responses: 1 9. Best Language: Instruct patient to: -: a. "Describe what you see in this picture." -: b. "Name the items in this picture." -: c. "Read these sentences." -: 0=No aphasia, normal -: 1=Mild to moderate aphasia. -: 2=Severe aphasia -: 3=Mute, global aphasia, no usable speech or auditory comprehension. 9. Responses: 0 10. Articulation, Dysarthia: Instruct patient to: -: "Read these words" or "Repeat these words" -: 0=Normal -: 1=Mild to moderate; patient may slur some words but can be understood without difficulty. -: 2=Severe; patients speech so slurred as to be unintelligible in the absence of dysphasia. -: UN=Intubated or other physical barrier, explain in comments. 10. Responses: 0 11. Extinction or inattention: 0=No abnormality -: 1= Visual, tactile, auditory, spatial, or personal inattention or extinction to bilateral simulation in one or the sensory modalities. -: 2=Profound richard-inattention or richard-inattention to more than one modality; does not recognize own hand. 11. Responses: 0 Total Score: 2 Discharge - Discharge Clinical Impression: Arm paresthesia, left, Vertigo, Ataxia of left upper extremity Condition: Stable Disposition: ADMITTED INPATIENT Admitting Provider: Anandin Unit Admitted: [facility]
--- NOTE | 2019-03-10 10:38 | RADIOLOGY REPORT (SQ) ---
EXAM DESCRIPTION: CT HEAD WITHOUT COMPLETED DATE/TIME: 03/10/2019 10:26 am REASON FOR STUDY: Dizziness and visual change with unilateral SCHULER COMPARISON: 10/09/2018 TECHNIQUE: Axial images acquired through the brain without intravenous contrast. Images reviewed wi th bone, brain and subdural windows. Additional sagittal and coronal reconstructions were generated. Images stored on PACS. All CT scanners at this facility use dose modulation, iterative reconstruction, and/or weight based d osing when appropriate to reduce radiation dose to as low as reasonably achievable (ALARA). [facility]: Dose Right [facility]: CareDose [facility]: Dose Right [facility]: Teradose 4D [facility]: [employer] RADIATION DOSE: CT Rad equipment meets quality standard of care and radiation dose reduction techniq ues were employed. CTDIvol: 53.2 mGy. DLP: 991 mGy-cm. mGy. LIMITATIONS: None. FINDINGS: VENTRICLES: Normal size and contour. CEREBRUM: No masses. No hemorrhage. No midline shift. No evidence for acute infarction. Normal gra y/white matter differentiation. No areas of low density in the white matter. CEREBELLUM: No masses. No hemorrhage. No alteration of density. No evidence for acute infarction. EXTRAAXIAL SPACES: No fluid collections. No masses. ORBITS AND GLOBE: No intra- or extraconal masses. Normal contour of globe without masses. CALVARIUM: No fracture. PARANASAL SINUSES: No fluid or mucosal thickening. SOFT TISSUES: No mass or hematoma. OTHER: No other significant finding. IMPRESSION: No acute intracranial pathology. No noncontrast CT findings to explain headache. EVIDENCE OF ACUTE STROKE: NO. COMMENT: Quality ID # [id number]: Final reports with documentation of one or more dose reduction techniques (e.g., Automated exposure control, adjustment of the mA and/or kV according to patient size, use of iterative reconstruction technique) TECHNICAL DOCUMENTATION: JOB ID: [id number] [employer]- All Rights Reserved Reading location - IP/workstation name: [email or web address]
[2019-03-10 11:18] LABS: APPEARANCE,URINE CLEAR; BILIRUBIN,URINE NEGATIVE (NEGATIVE); COLOR,URINE YELLOW; GLUCOSE, URINE NEGATIVE (NEGATIVE); KETONES,URINE 20 mg/dL (NEGATIVE); LEUKOCYTE ESTERASE,URINE NEGATIVE (NEGATIVE); NITRITE,URINE NEGATIVE (NEGATIVE); PROTEIN,URINE NEGATIVE (NEGATIVE); URINE SPECIFIC GRAVITY 1.018; UROBILINOGEN,URINE NEGATIVE mg/dL (<2.0)
[2019-03-10] MEDS ORDERED: ACETAMINOPHEN 325 MG TABLET PO ONE (11:36)
[2019-03-10] MEDS ORDERED: ASPIRIN 325 MG TABLET PO ONE (12:09)
[2019-03-10] MEDS ORDERED: GLUCAGON,HUMAN RECOMB 1 MG INJ IM PRN (12:18)
[2019-03-10] MEDS ORDERED: DEXTROSE 50%-WATER 25 GM/50 ML DISP.SYRIN IV PRN ×2 (12:18)
[2019-03-10] MEDS ORDERED: DEXTROSE 40% GEL 15 GM TUBE PO PRN ×2 (12:18)
[2019-03-10] MEDS ORDERED: HYDRALAZINE HCL INJ/PF 20 MG/1 ML SDV IV PRN (12:20)
[2019-03-10] MEDS: ENOXAPARIN SODIUM INJ 40 MG/0.4 ML DISP.SYRIN SUBCUT SCH (16:38)
[2019-03-10] MEDS: BUTALB/ACETAMINOPHEN/CAFFEINE 1 TAB EACH PO PRN ×2 (17:17→21:49)
[2019-03-10] MEDS: INSULIN LISPRO 100 UNIT/ML 3 ML VIAL SUBCUT SCH ×2 (17:23→21:50)
[2019-03-10 19:25] LABS: CREATINE KINASE MB 0.26 ng/mL (<4.55)
[2019-03-10 19:26] LABS: TROPONIN I < 0.012 ng/mL
--- NOTE | 2019-03-10 19:55 | PDOC H&P ---
History of Present Illness Admission Date/PCP: 03/10/19 12:45 SHITAL BARKER MD History of Present Illness: SOMMER BOYLE is a 69 year old male, He has a history of type 2 diabetes mellitus, hypertension, hyperlipidemia, morbid obesity,he came to the emergency room for evaluation of transient loss of speech, numbness of the left side of his body, hemisensory loss, loss of strength of the left side of his body, he also had a headache, before these symptoms he had episode of extreme shakiness of his body. In the emergency room a CT scan of the head was done, it was negative for any acute pathology, MRI of the brain could not be done because he has a metallic object in his left upper arm, the object was attractive to a magnet Past Medical History Cardiac Medical History: Reports: Hypertension Endocrine Medical History: Reports: Diabetes Mellitus Type 2, Obesity, Other - Hyperlipidemia Social History Smoking Status: Never Smoker Frequency of Alcohol Use: Rare Hx Recreational Drug Use: No Hx Prescription Drug Abuse: No - Advance Directive Resuscitation Status: Full Code Family History Family History: Reviewed & Not Pertinent, DM Parental Family History Reviewed: Yes Children Family History Reviewed: Yes Sibling(s) Family History Reviewed.: Yes Medication/Allergy Home Medications: RX: Glimepiride 2 mg PO DAILY 02/15/18 RX: Glimepiride 4 mg PO DAILY 02/15/18 RX: Lisinopril 40 mg PO DAILY 02/15/18 RX: Pioglitazone HCl 15 mg PO DAILY 02/15/18 Amlodipine Besylate [Norvasc 10 mg Tablet] 10 mg PO DAILY 03/10/19 Allergies/Adverse Reactions: No Known Allergies Allergy (Verified 03/10/19 08:41) Review of Systems Constitutional: ABSENT: chills, fever(s), headache(s), weight gain, weight loss Eyes: ABSENT: visual disturbances Ears: ABSENT: hearing changes Cardiovascular: ABSENT: chest pain, dyspnea on exertion, edema, orthropnea, p alpitations Respiratory: ABSENT: cough, hemoptysis Gastrointestinal: ABSENT: abdominal pain, constipation, diarrhea, hematemesis, hematochezia, nausea, vomiting Genitourinary: ABSENT: dysuria, hematuria Musculoskeletal: ABSENT: joint swelling Integumentary: ABSENT: rash, wounds Neurological: PRESENT: abnormal speech, numbness, paresthesias, weakness Psychiatric: ABSENT: anxiety, depression, homidical ideation, suicidal ideation Endocrine: ABSENT: cold intolerance, heat intolerance, menstrual abnormalities, polydipsia, polyuria Hematologic/Lymphatic: ABSENT: easy bleeding, easy bruising, lymphadenopathy Physical Exam Vital Signs: Temp Pulse Resp BP Pulse Ox 98.1 F 77 16 144/66 H 98 03/10/19 15:30 03/10/19 16:00 03/10/19 16:00 03/10/19 16:00 03/10/19 16:00 Intake & Output 03/09/19 03/10/19 03/11/19 06:59 06:59 06:59 Weight 107.9 kg General appearance: PRESENT: no acute distress, well-developed, well-nourished Head exam: PRESENT: atraumatic, normocephalic Eye exam: PRESENT: conjunctiva pink, EOMI, PERRLA Ear exam: PRESENT: normal external ear exam Mouth exam: PRESENT: moist, tongue midline Neck exam: PRESENT: full ROM Respiratory exam: PRESENT: clear to auscultation dieter Cardiovascular exam: PRESENT: RRR, +S1, +S2 Pulses: PRESENT: normal dorsalis pedis pul, +2 pedal pulses bilateral Vascular exam: PRESENT: normal capillary refill GI/Abdominal exam: PRESENT: normal bowel sounds, soft Rectal exam: PRESENT: deferred Neurological exam: PRESENT: alert, awake, oriented to person, oriented to place, oriented to time, oriented to situation, CN II-XII grossly intact Psychiatric exam: PRESENT: appropriate affect, normal mood Skin exam: PRESENT: dry, intact, warm Results Laboratory Results: 03/10/19 09:37 03/10/19 09:37 03/10/19 03/10/19 03/10/19 09:37 09:37 10:54 WBC 6.7 RBC 4.72 Hgb 15.0 Hct 43.1 MCV 91 MCH 31.7 MCHC 34.7 RDW 13.9 Plt Count 172 Seg Neutrophils % 70.2 Lymphocytes % 18.8 Monocytes % 8.3 Eosinophils % 2.0 Basophils % 0.7 Absolute Neutrophils 4.7 Absolute Lymphocytes 1.3 Absolute Monocytes 0.6 Absolute Eosinophils 0.1 Absolute Basophils 0.0 Sodium 141.4 Potassium 4.0 Chloride 108 H Carbon Dioxide 22 Anion Gap 11 BUN 24 H Creatinine 1.11 Est GFR ( Amer) > 60 Est GFR (Non-Af Amer) > 60 Glucose 108 Calcium 9.4 Total Bilirubin 0.9 AST 22 ALT 30 Alkaline Phosphatase 66 Total Protein 7.2 Albumin 4.0 Urine Color YELLOW Urine Appearance CLEAR Urine pH 6.0 Ur Specific [place] 1.018 Urine Protein NEGATIVE Urine Glucose (UA) NEGATIVE Urine Ketones 20 H Urine Blood NEGATIVE Urine Nitrite NEGATIVE Ur Leukocyte Esterase NEGATIVE Urine WBC (Auto) 1 Urine RBC (Auto) 1 03/10/19 03/10/19 03/10/19 09:37 09:37 18:34 Creatine Kinase 72 59 CK-MB (CK-2) 0.35 Troponin I < 0.012 03/10/19 18:34 Creatine Kinase CK-MB (CK-2) 0.26 Troponin I < 0.012 Impressions: Head CT 03/10/19 00:00 IMPRESSION: No acute intracranial pathology. No noncontrast CT findings to explain headache. EVIDENCE OF ACUTE STROKE: NO. Assessment & Plan - Diagnosis (1) Transient ischemic attack Is this a current diagnosis for this admission?: Yes Plan: Patient symptoms is consistent with transient ischemic attack which is considered a neurologic emergency given the subsequent 48-hour to 90-day risk of ischemic stroke.. The risk stratification of this patient with TIA based on the ABCD squared score is age more than 60 years 1 acute blood pressure more than 140/90, 1 clinical symptoms focal weakness to duration of TIA more than 60 minutes to less than 60 minutes 1 diabetes 1, patient score is 6 points suggesting risk of stroke in 48 hours is over 8 % which is quite high for this patient patient will be admitted to the hospital as inpatient because of the risk of stroke is very high based on the ABCD scoring system ,a noncontrast head CT was done there was no hemorrhagic stroke demonstrated carotid ultrasound is ordered 2D echo is ordered (2) T2DM (type 2 diabetes mellitus) Qualifiers: Diabetes mellitus mcfp insulin use: without terminal press operator use Diabetes mellitus complication status: with neurologic complications Diabetes mellitus complication detail: with polyneuropathy Qualified Code(s): E11.42 - Type 2 diabetes mellitus with diabetic polyneuropathy Is this a current diagnosis for this admission?: Yes
[2019-03-10] MEDS: ATORVASTATIN CALCIUM 80 MG TABLET PO SCH (21:49)
[2019-03-10] MEDS: ASPIRIN/DIPYRIDAMOLE 25-200 MG 1 CAP.SR CPMP.12HR PO SCH (21:50)
--- NOTE | 2019-03-10 22:15 | EKG REPORT ---
SEVERITY:- NORMAL ECG - SINUS RHYTHM : Confirmed by: James Tavares MD 10-Mar-2019 22:14:29
[2019-03-11 01:32] LABS: CREATINE KINASE MB 0.28 ng/mL (<4.55)
[2019-03-11 01:37] LABS: TROPONIN I < 0.012 ng/mL
[2019-03-11 05:06] LABS: CHOLESTEROL 133.04 mg/dL (0-200); CREATINE KINASE 68 U/L (55-170); TRIGLYCERIDES 74 mg/dL (<150)
[2019-03-11 05:17] LABS: CREATINE KINASE MB 0.31 ng/mL (<4.55); DIRECT LDL 73 mg/dL (<100)
[2019-03-11 05:18] LABS: TROPONIN I < 0.012 ng/mL
[2019-03-11] MEDS: BUTALB/ACETAMINOPHEN/CAFFEINE 1 TAB EACH PO PRN ×3 (06:35→15:39)
[2019-03-11] MEDS: INSULIN LISPRO 100 UNIT/ML 3 ML VIAL SUBCUT SCH ×4 (08:56→23:40)
[2019-03-11] MEDS: ASPIRIN/DIPYRIDAMOLE 25-200 MG 1 CAP.SR CPMP.12HR PO SCH ×2 (09:14→22:46)
[2019-03-11] MEDS: ENOXAPARIN SODIUM INJ 40 MG/0.4 ML DISP.SYRIN SUBCUT SCH (09:15)
--- NOTE | 2019-03-11 12:14 | RADIOLOGY REPORT (SQ) ---
EXAM DESCRIPTION: CAROTID DOPPLER COMPLETED DATE/TIME: 03/11/2019 11:59 am REASON FOR STUDY: stroke COMPARISON: None. TECHNIQUE: Grayscale ultrasound, Doppler velocity and spectra, and color Doppler images acquired of the extra-cranial carotid and vertebral arteries. Images stored on PACS. LIMITATIONS: None. FINDINGS: RIGHT CAROTID CCA Velocities: Within normal limits. ICA Velocities Peak systolic 0.69 m/s. End diastolic 0.21 m/s. Proximal ICA/CCA peak systolic ratio open 1.1. Spectra normal. No significant plaque. LEFT CAROTID CCA Velocities: Within normal limits. ICA Velocities Peak systolic 0.41 m/s. End diastolic 0.16 m/s. Proximal ICA/CCA peak systolic ratio 1.0. Spectra normal. No significant plaque. VERTEBRAL ARTERIES: Antegrade flow. Normal waveforms. SUBCLAVIAN ARTERIES: Not imaged. OTHER: No other significant finding. IMPRESSION: NO HEMODYNAMICALLY SIGNIFICANT STENOSIS. COMMENT: Quality ID #[id number]: Velocity criteria are extrapolated from the diameter data as defined by t he Society of Radiologists in Ultrasound Consensus Conference. Radiology 2003: 229; 340-346. TECHNICAL DOCUMENTATION: JOB ID: [id number] [employer]- All Rights Reserved Reading location - IP/workstation name: [email or web address]
--- NOTE | 2019-03-11 13:17 | XCELERA REPORT ---
[address] [address] Transthoracic Echocardiogram Report Name: SOMMER BOYLE Age: 69 yrs Gender: Male : 1950 Patient Status: Inpatient Patient Location: [address] [place] [address] Study Date: 03/11/2019 10:14 AM Height: 66 in Weight: 237 lb BSA: 2.1 m2 Procedure: A two-dimensional transthoracic echocardiogram with color flow and Doppler was performed. Study Quality: Poor. Poor endocardial visualisation and very poor doppler interogation. Images were not obtained from all of the standard acoustic windows due to the limited scope of the study. Reason For Study: stroke History: CVA. Ordering Physician: SHITAL BARKER Performed By: Sam Lee Interpretation Summary Poor endocardial visualisation and very poor doppler interogation. No True apical 2 chamber views obtained.Hence cannot comment on the apical anterior , the basal anterior, the basal inferior and apical inferior flowers.The mid anterior , the mid inferior and the rest of the LV flowers contract normally. . LVEF is probably normal and is greater than 60% in the limited views. Probably no LVH.Normal LV diastolic function by MVI dopplers.Probably no stenotic or regurgitant valvilar disesease,but cannot be sure.Unable to calculate RVSP. Not a study to assess forcardiogenic source of emboli.Consider KI if clinical suspicion for cardiac source of emboli is high. Probably no pericardial effusion. MMode/2D Measurements & Calculations RVDd: 4.2 cm LVIDd: 5.2 cm FS: 25.0 % Ao root diam: 3.6 cm IVSd: 1.0 cm LVIDs: 3.9 cm EDV(Teich): 128.0 ml Ao root area: 10.2 cm2 LVPWd: 0.92 cm ESV(Teich): 65.2 ml LA dimension: 3.8 cm EF(Teich): 49.1 % LVOT diam: 2.0 cm LVOT area: 3.2 cm2 Doppler Measurements & Calculations MV E max mounika: MV P1/2t max mounika: Ao V2 max: LV V1 max P.7 cm/sec 83.4 cm/sec 92.1 cm/sec 2.6 mmHg MV A max mounika: MV P1/2t: 60.9 msec Ao max PG: LV V1 max: 94.8 cm/sec MVA(P1/2t): 3.6 cm2 3.4 mmHg 80.9 cm/sec MV E/A: 0.84 MV dec slope: MAURICE(V,D): 2.8 cm2 401.0 cm/sec2 MV dec time: 0.24 sec PA V2 max: MV P1/2t-pr_phl: 97.3 cm/sec 60.9 msec PA max P.8 mmHg Left Ventricle The left ventricle is grossly normal size. No True apical 2 chamber views obtained.Hence cannot comment on the apical anterior , the basal anterior, the basal inferior and apical inferior flowers.The mid anterior , the mid inferior and the rest of the LV flowers contract normally. . LVEF is probably normal and is greater than 60% in the limited views. Probably no LVH.Normal LV diastolic function by MVI dopplers.Probably no stenotic or regurgitant valvilar disesease,but cannot be sure.Unable to calculate RVSP. Not a study to assess forcardiogenic source of emboli.Consider KI if clinical suspicion for cardiac source of emboli is high. Effusions Probably no pericardial effusion. : SHITAL BARKER > Raisa Gong
[2019-03-11] MEDS ORDERED: OXYCODONE-ACETAMINOPHEN 5-325 MG TABLET PO ONE (16:45)
--- NOTE | 2019-03-11 17:06 | PDOC PROGRESS REPORT ---
Subjective Progress Note for:: 03/11/19 Subjective:: Patient reported little benefit from Fioricet controlling his headache. He reported some degree of nausea but no vomiting, worsening headache with noise and loud sound that are very suggestive of migraine headache or variant. He denied any chest pain or difficulty with breathing. No reported fever or chills. Reason For Visit: STROKE Physical Exam Vital Signs: Temp Pulse Resp BP Pulse Ox 98.2 F 76 16 146/79 H 98 03/11/19 15:08 03/11/19 15:08 03/11/19 15:08 03/11/19 15:08 03/11/19 15:08 Intake & Output 03/10/19 03/11/19 03/12/19 06:59 06:59 06:59 Intake Total 490 480 Balance 490 480 Weight 107.1 kg General appearance: PRESENT: no acute distress, obese Head exam: PRESENT: atraumatic, normocephalic Eye exam: PRESENT: conjunctiva pink, EOMI, PERRLA. ABSENT: scleral icterus Ear exam: PRESENT: normal external ear exam Mouth exam: PRESENT: moist Respiratory exam: PRESENT: clear to auscultation dieter Cardiovascular exam: PRESENT: RRR. ABSENT: diastolic murmur, rubs, systolic murmur Pulses: PRESENT: normal dorsalis pedis pul, +2 pedal pulses bilateral Vascular exam: ABSENT: pallor GI/Abdominal exam: PRESENT: normal bowel sounds, soft. ABSENT: distended, guarding, mass, organolmegaly, rebound, tenderness Extremities exam: ABSENT: pedal edema Musculoskeletal exam: PRESENT: deformity - related to multiple joints involvem ent with arthritis Neurological exam: PRESENT: alert, awake, oriented to person, oriented to place, oriented to time, oriented to situation, CN II-XII grossly intact. ABSENT: motor sensory deficit Psychiatric exam: PRESENT: appropriate affect, normal mood. ABSENT: homicidal ideation, suicidal ideation Skin exam: PRESENT: dry, warm Results Laboratory Results: 03/10/19 09:37 03/10/19 09:37 03/11/19 04:14 Triglycerides 74 Cholesterol 133.04 LDL Cholesterol Direct 73 VLDL Cholesterol 15.0 HDL Cholesterol 54 03/10/19 03/10/19 03/10/19 09:37 09:37 18:34 Creatine Kinase 72 59 CK-MB (CK-2) 0.35 Troponin I < 0.012 03/10/19 03/11/19 03/11/19 18:34 00:21 00:21 Creatine Kinase 64 CK-MB (CK-2) 0.26 0.28 Troponin I < 0.012 < 0.012 03/11/19 03/11/19 04:14 04:14 Creatine Kinase 68 CK-MB (CK-2) 0.31 Troponin I < 0.012 Impressions: Head CT 03/10/19 00:00 IMPRESSION: No acute intracranial pathology. No noncontrast CT findings to explain headache. EVIDENCE OF ACUTE STROKE: NO. Carotid Doppler Study 03/11/19 00:00 IMPRESSION: NO HEMODYNAMICALLY SIGNIFICANT STENOSIS. Assessment & Plan - Diagnosis (1) Headache, migraine Qualifiers: Migraine type: without aura Status migrainosus presence: without status migrainosus Intractability: intractable Qualified Code(s): G43.019 - Migraine without aura, intractable, without status migrainosus Is this a current diagnosis for this admission?: Yes Plan: See covering attending physician orders for details of care plan. (2) Transient ischemic attack Is this a current diagnosis for this admission?: Yes Plan: See covering attending physician orders for details of care plan. This remain probable due to head CT scan findings and gross absence of clinical examination findings. (3) T2DM (type 2 diabetes mellitus) Qualifiers: Diabetes mellitus care home insulin use: without care home use Diabetes mellitus complication status: with neurologic complications Diabetes mellitus complication detail: with polyneuropathy Qualified Code(s): E11.42 - Type 2 diabetes mellitus with diabetic polyneuropathy Is this a current diagnosis for this admission?: Yes Plan: Obtain HgbA1c level. See covering attending physician orders for details of care plan. (4) HTN (hypertension) Qualifiers: Hypertension type: essential hypertension Qualified Code(s): I10 - Essential (primary) hypertension Is this a current diagnosis for this admission?: Yes Plan: See covering attending physician orders for details of care plan. (5) Obesity Qualifiers: Obesity type: unspecified obesity type Serious obesity comorbidity presence: with serious comorbidity Body mass index: BMI 38.0-38.9 Is this a current diagnosis for this admission?: Yes Plan: See covering attending physician orders for details of care plan. - Time Time Spent with patient: 25-34 minutes Medications reviewed and adjusted accordingly: Yes Anticipated discharge: Home with Homehealth Within: Other - Inpatient Certification Based on my medical assessment, after consideration of the patient's comorbidities, presenting symptoms, or acuity I expect that the services needed warrant INPATIENT care.: Yes I certify that my determination is in accordance with my understanding of Medicare's requirements for reasonable and necessary INPATIENT services [42 CFR 412.3e].: Yes Medical Necessity: Significant Comorbidiites Make Outpatient Treatment Too Risky, Need Close Monitoring Due to Risk of Patient Decompensation, Need For Continuous Telemetry Monitoring, Risk of Complication if Not Cared For in Hospital, Risk of Diagnosis Which Will Require Inpatient Eval/Care/Monitoring Post Hospital Care: D/C Prime Broker Documentation - Plan Summary Plan Summary: See covering attending physician orders for details of care plan.
[2019-03-11] MEDS ORDERED: IBUPROFEN 400 MG TABLET PO ONE (20:30)
[2019-03-11] MEDS ORDERED: IBUPROFEN 800 MG TABLET PO ONE (21:15)
[2019-03-11] MEDS: ATORVASTATIN CALCIUM 80 MG TABLET PO SCH (22:45)
[2019-03-12] MEDS: BUTALB/ACETAMINOPHEN/CAFFEINE 1 TAB EACH PO PRN ×3 (08:05→17:09)
[2019-03-12] MEDS: INSULIN LISPRO 100 UNIT/ML 3 ML VIAL SUBCUT SCH ×4 (09:50→21:48)
[2019-03-12] MEDS: ENOXAPARIN SODIUM INJ 40 MG/0.4 ML DISP.SYRIN SUBCUT SCH (09:54)
[2019-03-12] MEDS: ASPIRIN/DIPYRIDAMOLE 25-200 MG 1 CAP.SR CPMP.12HR PO SCH (09:54)
[2019-03-12] MEDS: PROMETHAZINE HCL 25 MG TABLET PO PRN ×2 (11:51→17:09)
--- NOTE | 2019-03-12 16:17 | PDOC PROGRESS REPORT ---
Subjective Progress Note for:: 03/12/19 Subjective:: Patient continue to report ongoing headache and nausea but no vomiting. His symptoms did improve slightly with administration of Zofran. He denied any chest pain or difficulty with breathing. No reported fever or chills. Reason For Visit: STROKE Physical Exam Vital Signs: Temp Pulse Resp BP Pulse Ox 98.3 F 80 20 133/69 H 96 03/12/19 08:37 03/12/19 14:00 03/12/19 12:00 03/12/19 12:00 03/12/19 12:00 Intake & Output 03/11/19 03/12/19 03/13/19 06:59 06:59 06:59 Intake Total 490 960 Output Total 1 Balance 490 959 Weight 107.1 kg 106.9 kg Physical Exam: General appearance: PRESENT: no acute distress, obese Head exam: PRESENT: atraumatic, normocephalic Eye exam: PRESENT: conjunctiva pink, EOMI, PERRLA. ABSENT: pallor, scleral icterus Ear exam: PRESENT: normal external ear exam Mouth exam: PRESENT: moist Respiratory exam: PRESENT: clear to auscultation dieter Cardiovascular exam: PRESENT: RRR. ABSENT: diastolic murmur, rubs, systolic murmur Pulses: PRESENT: normal dorsalis pedis pul, +2 pedal pulses bilateral GI/Abdominal exam: PRESENT: normal bowel sounds, soft. ABSENT: distended, guarding, mass, organomegaly, rebound, tenderness Extremities exam: ABSENT: pedal edema Musculoskeletal exam: PRESENT: deformity - related to multiple joints involvement with arthritis Neurological exam: PRESENT: alert, awake, oriented to person, oriented to place, oriented to time, oriented to situation, CN II-XII grossly intact. ABSENT: motor sensory deficit Psychiatric exam: PRESENT: appropriate affect, normal mood. ABSENT: homicidal ideation, suicidal ideation Skin exam: PRESENT: dry, warm Results Laboratory Results: 03/10/19 09:37 03/10/19 09:37 03/10/19 03/10/19 03/10/19 09:37 09:37 18:34 Creatine Kinase 72 59 CK-MB (CK-2) 0.35 Troponin I < 0.012 03/10/19 03/11/19 03/11/19 18:34 00:21 00:21 Creatine Kinase 64 CK-MB (CK-2) 0.26 0.28 Troponin I < 0.012 < 0.012 03/11/19 03/11/19 04:14 04:14 Creatine Kinase 68 CK-MB (CK-2) 0.31 Troponin I < 0.012 Impressions: Head CT 03/10/19 00:00 IMPRESSION: No acute intracranial pathology. No noncontrast CT findings to explain headache. EVIDENCE OF ACUTE STROKE: NO. Carotid Doppler Study 03/11/19 00:00 IMPRESSION: NO HEMODYNAMICALLY SIGNIFICANT STENOSIS. Assessment & Plan - Diagnosis (1) Headache, migraine Qualifiers: Migraine type: without aura Status migrainosus presence: without status migrainosus Intractability: intractable Qualified Code(s): G43.019 - Migraine without aura, intractable, without status migrainosus Is this a current diagnosis for this admission?: Yes (2) Transient ischemic attack Is this a current diagnosis for this admission?: Yes (3) T2DM (type 2 diabetes mellitus) Qualifiers: Diabetes mellitus alf insulin use: without dedicated intermodal truck driver use Diabetes mellitus complication status: with neurologic complications Diabetes mellitus complication detail: with polyneuropathy Qualified Code(s): E11.42 - Type 2 diabetes mellitus with diabetic polyneuropathy Is this a current diagnosis for this admission?: Yes (4) HTN (hypertension) Qualifiers: Hypertension type: essential hypertension Qualified Code(s): I10 - Essential (primary) hypertension Is this a current diagnosis for this admission?: Yes (5) Obesity Qualifiers: Obesity type: unspecified obesity type Serious obesity comorbidity presence: with serious comorbidity Body mass index: BMI 38.0-38.9 Is this a current diagnosis for this admission?: Yes - Time Time Spent with patient: 25-34 minutes Medications reviewed and adjusted accordingly: Yes Anticipated discharge: Home with Homehealth Within: Other - Inpatient Certification Based on my medical assessment, after consideration of the patient's comorbidities, presenting symptoms, or acuity I expect that the services needed warrant INPATIENT care.: Yes I certify that my determination is in accordance with my understanding of Medicare's requirements for reasonable and necessary INPATIENT services [42 CFR 412.3e].: Yes Medical Necessity: Significant Comorbidiites Make Outpatient Treatment Too Risky, Need Close Monitoring Due to Risk of Patient Decompensation, Need For IV Fluids, Need For Continuous Telemetry Monitoring, Risk of Complication if Not Cared For in Hospital, Risk of Diagnosis Which Will Require Inpatient Eval/Care/Monitoring Post Hospital Care: D/C Cosmetology Educator Documentation - Plan Summary Plan Summary: Decrease Aggrenox to daily due to his headache which could be from bid dosing of Aggrenox form onset of therapy. We will increase Aggrenox dose gradually to bid after 1 week of daily administration. Add Ecotrin 81 mg po daily.
[2019-03-12] MEDS: ASPIRIN 81 MG TABLET, ENT COATED PO SCH (17:05)
[2019-03-12] MEDS: ATORVASTATIN CALCIUM 80 MG TABLET PO SCH (21:49)
[2019-03-12] MEDS ORDERED: ACETAMINOPHEN 325 MG TABLET PO PRN (22:06)
[2019-03-13] MEDS: BUTALB/ACETAMINOPHEN/CAFFEINE 1 TAB EACH PO PRN ×3 (08:25→20:26)
[2019-03-13] MEDS: INSULIN LISPRO 100 UNIT/ML 3 ML VIAL SUBCUT SCH ×3 (08:28→17:42)
--- NOTE | 2019-03-13 09:51 | RADIOLOGY REPORT (SQ) ---
EXAM DESCRIPTION: CT HEAD COMBO COMPLETED DATE/TIME: 03/13/2019 9:36 am REASON FOR STUDY: Continuous Migraine COMPARISON: 03/10/2019 TECHNIQUE: Axial images acquired through the brain without and with intravenous contrast. Images re viewed with bone, brain and subdural windows. Additional sagittal and coronal reconstructions were g enerated. Images stored on PACS. All CT scanners at this facility use dose modulation, iterative reconstruction, and/or weight based d osing when appropriate to reduce radiation dose to as low as reasonably achievable (ALARA). [facility]: Dose Right [facility]: CareDose [facility]: Dose Right [facility]: Teradose 4D [facility]: Text A Cab CONTRAST TYPE AND DOSE: contrast/concentration: Isovue 350.00 mg/ml; Total Contrast Delivered: 50.0 ml; Total Saline Delivered: 55.0 ml RENAL FUNCTION: Creatinine - 1.1 BUN=24 RADIATION DOSE: CT Rad equipment meets quality standard of care and radiation dose reduction techniq ues were employed. CTDIvol: 48.6 - 48.6 mGy. DLP: 1808 mGy-cm.. LIMITATIONS: None. FINDINGS: VENTRICLES: Normal size and contour. The cisterns are patent. CEREBRUM: No masses. No hemorrhage. No midline shift. Normal duran/white matter differentiation. No ev idence for acute infarction. No enhancing lesions. CEREBELLUM: No masses. No hemorrhage. No alteration of density. No evidence for acute infarction. No enhancing lesions. EXTRA-AXIAL SPACES: Age related involutional change. No fluid collections. No enhancing lesions. ORBITS AND GLOBE: No intra- or extraconal masses. Normal contour of globe without masses. CALVARIUM: No fracture. PARANASAL SINUSES: Slight to mild mucosal thickening involving the left maxillary sinus. Minimal ch anges on the right appear Mild deviation of the nasal septum to the right of the midline. SOFT TISSUES: No mass or hematoma. OTHER: Atherosclerotic changes involving the intracranial portion of the left vertebral artery. IMPRESSION: 1. No significant interval changes since the prior examination dated 03/10/2019. No acut e intracranial abnormality. 2. Mild atrophy. 3. Chronic mild left maxillary sinus disease. EVIDENCE OF ACUTE STROKE: NO. TECHNICAL DOCUMENTATION: JOB ID: [id number] Quality ID # [id number]: Final reports with documentation of one or more dose reduction techniques (e.g., Au tomated exposure control, adjustment of the mA and/or kV according to patient size, use of iterative reconstruction technique) 2010 [employer]- All Rights Reserved Reading location - IP/workstation name: [email or web address]
[2019-03-13] MEDS: ASPIRIN 81 MG TABLET, ENT COATED PO SCH (09:58)
[2019-03-13] MEDS: ENOXAPARIN SODIUM INJ 40 MG/0.4 ML DISP.SYRIN SUBCUT SCH (09:58)
[2019-03-13] MEDS ORDERED: ASPIRIN/DIPYRIDAMOLE 25-200 MG 1 CAP.SR CPMP.12HR PO SCH (10:00)
[2019-03-13 10:55] LABS: ABSOLUTE LYMPHOCYTES (AUTO) 1.1 10^3/uL (0.5-4.7); ABSOLUTE MONOCYTES (AUTO) 1.2 10^3/uL (0.1-1.4); ABSOLUTE NEUT (AUTO) 10.7 10^3/uL (1.7-8.2); BASOPHILS % (AUTO) 0.2 % (0-2); EOSINOPHILS % (AUTO) 0.2 % (0-6); HEMATOCRIT 44.4 % (37.9-51.0); HEMOGLOBIN 15.4 g/dL (13.5-17.0); LYMPHOCYTES % (AUTO) 8.5 % (13-45); MEAN CORPUSCULAR HEMOGLOBIN 31.3 pg (27.0-33.4); MEAN CORPUSCULAR HGB CONC 34.6 g/dL (32.0-36.0); MEAN CORPUSCULAR VOLUME 91 fl (80-97); MONOCYTES % (AUTO) 9.1 % (3-13); PLATELET COUNT 139 10^3/uL (150-450); RED BLOOD COUNT 4.91 10^6/uL (4.35-5.55); RED CELL DISTRIBUTION WIDTH 13.7 % (11.5-14.0); TOTAL CELLS COUNTED % (AUTO) 100 %; WHITE BLOOD COUNT 13.1 10^3/uL (4.0-10.5)
[2019-03-13 11:03] LABS: ALANINE AMINOTRANSFERASE 25 U/L (21-72); ALBUMIN 3.8 g/dL (3.5-5.0); ALKALINE PHOSPHATASE 66 U/L (38-126); ANION GAP 12 (5-19); ASPARTATE AMINO TRANSFERASE 21 U/L (17-59); BILIRUBIN,DIRECT 0.3 mg/dL (0.0-0.4); BLOOD UREA NITROGEN 22 mg/dL (7-20); CALCIUM 8.9 mg/dL (8.4-10.2); CARBON DIOXIDE 20 mmol/L (22-30); CHLORIDE 105 mmol/L (98-107); CREATINE KINASE 80 U/L (55-170); GLUCOSE 123 mg/dL (75-110); POTASSIUM 3.6 mmol/L (3.6-5.0); SODIUM 137.4 mmol/L (137-145); TOTAL PROTEIN 7.1 g/dL (6.3-8.2)
[2019-03-13 11:15] LABS: CREATINE KINASE MB 0.25 ng/mL (<4.55); TROPONIN I < 0.012 ng/mL
--- NOTE | 2019-03-13 13:02 | Physician Advisory Note ---
Physician Advisor ProgressNote .: Pursuant to the plan for [facility], I have reviewed the medical record for this patient. Physician Advisor Statement: Attg, please document: 1. Any concerns/findings that would explain appropriateness of INpt status/continued need for hospital level of care on each day so far (see discussion below when time allows) 2. What has happened that led to ordering new tests today - what is attending concerned about? (T100.0, RR 24, & tachycardia developing 6/9 PM?, MAP drop from 90s+ range to 74 this AM w/cont'd tachycardia?, other new findings?) 3. If attending documents concerns today that require ongoing eval/tx in hospital until at least tomorrow, then pt will be appropriate for Inpatient status, at least starting today. 4. Does pt now have "bacterial infxn of undetermined etiology"? Or likely a viral illness? or ...? (see below) Thanks! CK Status issues: Pt w/suspected TIA per H&P - is not considered an Inpt situation initially unless there is another clinical issue present requiring INpt status. - If pt's condition is serious, the description in notes should reflect that - most physicians do not consider TIA sx to be an unstable condition. - Although TIA confers increased risk for CVA over the next 48 hrs & indeed the next 90 days, the typical current clinical management for TIA allows for d/c home in most cases the day after arrival unless other urgent clinical issues develop that require longer stay. On day 2, decision needs to be to d/c home, or explain why pt needs a 2nd MN in hospital to justify change to Inpt. (If pt is kept a 2nd MN simply because the ECHO hasn't been done yet, for example, that is not a reason to change to INpatient, but considered a "delay of care" by the hospital.) - On day 2 in this case, at 10:09 AM, PT eval documents pt's neuro sx have all resolved & pt has no need for continued PT. Attending progress note indicates continued SCHULER with nausea, suspected due to migraine, in addition to probable TIA. Tx including po meds is ordered. Pt not having unstable VS, not having concerning heart rhythms disturbances, no acute organ failure, not having new acute sx that cannot be managed by oral meds & rest @home [as best can be determined from review of current documentation]. Referral to rehab is noted, but [facility] documents at 14:11 that pt was up walking this day & unlikely to need rehab. - Therefore, review of documentation finds no clear ongoing clinical reason to support INpatient status, or conversion to Inpt, in this case on day 2. On day 3, case was reviewed by CaseMgr & by TIM physician advisor, with determination that Obs was appropriate in this case, not inpt status. - Weekend attending, as best as can be determined, did not address this, but told CM to discuss with admitting attending on 03/13 instead. Such a decision, in a Medicare patient such as this, causes the hospital to lose the opportunity for Observation care time to be reimbursed, while Inpatient status coverage will also be denied without documentation that explains ongoing attending concerns that require ongoing hospital level of care. - Attending documented impression of intractable migraine and TIA, with ongoing SCHULER & nausea but no vomiting, with plan to decrease Aggrenox and add ASA, added prn po Phenergan and PRN po Tylenol. No documentation of why this could not be safely done outside of hospital at this point. - Therefore, review still finds no clear clinical reason to support INpatient status on day 3 unless further clarification documentation is given. On day 4, OT notes patient has no significant functional deficits, though poor endurance (SOB with donning socks, etc). - There is no note yet from attending, but this day something must have happened that led attending to order repeat CT of head (reason given was SCHULER/TIA, findings = chronic mild left maxillary sinus dz, which doesn't seem to explain the Rt-sided SCHULER), and CBC/BMP. - CBC shows acute leukocytosis and acute thrombocytopenia (?need lactate level w/re-ck, [if suspecting sepsis]?), along with acutely raised Cr (not enough to call LACEY yet) & dropped bicarb concerning for Acute Metabolic Acidosis. This could potentially indicate new infxn & even sepsis, especially if MAP drops below 70 &/or Cr worsens into LACEY.... Will need to see what attg thinks....
--- NOTE | 2019-03-13 17:26 | PDOC PROGRESS REPORT ---
Subjective Progress Note for:: 03/13/19 Subjective:: Patient was seen by the bedside, he was admitted for TIA management, he continues to have headache, he has no history of headache, CT scan with contrast was negative for any pathology. I suggest that he gets a lumbar puncture to rule out subarachnoid hemorrhage., Unfortunately he is on Aggrenox, he has to stop for 5 days Reason For Visit: STROKE Physical Exam Vital Signs: Temp Pulse Resp BP Pulse Ox 98.2 F 92 18 127/73 H 96 03/13/19 14:54 03/13/19 14:54 03/13/19 14:54 03/13/19 14:54 03/13/19 14:54 Intake & Output 03/12/19 03/13/19 03/14/19 06:59 06:59 06:59 Intake Total 960 540 240 Output Total 1 Balance 959 540 240 Weight 106.9 kg 106.2 kg General appearance: PRESENT: no acute distress Eye exam: PRESENT: PERRLA Respiratory exam: PRESENT: clear to auscultation ideter Cardiovascular exam: PRESENT: +S1, +S2 GI/Abdominal exam: PRESENT: soft Neurological exam: PRESENT: alert Results Laboratory Results: 03/13/19 10:31 03/13/19 10:31 03/13/19 03/13/19 03/13/19 10:31 10:31 14:30 WBC 13.1 H RBC 4.91 Hgb 15.4 Hct 44.4 MCV 91 MCH 31.3 MCHC 34.6 RDW 13.7 Plt Count 139 L Seg Neutrophils % 82.0 H Lymphocytes % 8.5 L Monocytes % 9.1 Eosinophils % 0.2 Basophils % 0.2 Absolute Neutrophils 10.7 H Absolute Lymphocytes 1.1 Absolute Monocytes 1.2 Absolute Eosinophils 0.0 Absolute Basophils 0.0 Sodium 137.4 Potassium 3.6 Chloride 105 Carbon Dioxide 20 L Anion Gap 12 BUN 22 H Creatinine 1.30 H Est GFR ( Amer) > 60 Est GFR (Non-Af Amer) 55 L Glucose 123 H Lactic Acid 1.1 Calcium 8.9 Total Bilirubin 1.0 AST 21 ALT 25 Alkaline Phosphatase 66 Total Protein 7.1 Albumin 3.8 03/10/19 03/10/19 03/10/19 09:37 09:37 18:34 Creatine Kinase 72 59 CK-MB (CK-2) 0.35 Troponin I < 0.012 03/10/19 03/11/19 03/11/19 18:34 00:21 00:21 Creatine Kinase 64 CK-MB (CK-2) 0.26 0.28 Troponin I < 0.012 < 0.012 03/11/19 03/11/19 03/13/19 04:14 04:14 10:31 Creatine Kinase 68 80 CK-MB (CK-2) 0.31 Troponin I < 0.012 03/13/19 10:31 Creatine Kinase CK-MB (CK-2) 0.25 Troponin I < 0.012 Impressions: Carotid Doppler Study 03/11/19 00:00 IMPRESSION: NO HEMODYNAMICALLY SIGNIFICANT STENOSIS. Head CT 03/13/19 00:00 IMPRESSION: 1. No significant interval changes since the prior examination dated 03/10/2019. No acute intracranial abnormality. 2. Mild atrophy. 3. Chronic mild left maxillary sinus disease. EVIDENCE OF ACUTE STROKE: NO. Assessment & Plan - Diagnosis (1) Transient ischemic attack Is this a current diagnosis for this admission?: Yes (2) T2DM (type 2 diabetes mellitus) Qualifiers: Diabetes mellitus alf insulin use: without intermodal customer service use Diabetes mellitus complication status: with neurologic complications Diabetes mellitus complication detail: with polyneuropathy Qualified Code(s): E11.42 - Type 2 diabetes mellitus with diabetic polyneuropathy Is this a current diagnosis for this admission?: Yes (3) Headache Qualifiers: Headache type: unspecified Headache chronicity pattern: unspecified pattern Intractability: not intractable Qualified Code(s): R51 - Headache Is this a current diagnosis for this admission?: Yes Plan: He has a headache, no history of chronic headache, there is leukocytosis with a left shift, there is no good explanation for the headache, I recommend that she get a lumbar puncture to rule out subarachnoid bleed, presently is on antiplatelet with Aggrenox, he has to stop the medication for 5 days
[2019-03-13 17:50] LABS: PROTHROMBIN TIME 13.7 SEC (11.4-15.4)
[2019-03-13 17:51] LABS: PARTIAL THROMBOPLASTIN TIME 36.9 SEC (23.5-35.8)
[2019-03-13] MEDS: ATORVASTATIN CALCIUM 80 MG TABLET PO SCH (22:43)
[2019-03-14] MEDS: INSULIN LISPRO 100 UNIT/ML 3 ML VIAL SUBCUT SCH ×4 (01:57→17:36)
[2019-03-14 08:31] LABS: ABSOLUTE BASOPHILS # (AUTO) 0.1 10^3/uL (0.0-0.2); ABSOLUTE EOSINOPHILS # (AUTO) 0.1 10^3/uL (0.0-0.6); ABSOLUTE LYMPHOCYTES (AUTO) 1.6 10^3/uL (0.5-4.7); ABSOLUTE NEUT (AUTO) 5.8 10^3/uL (1.7-8.2); BASOPHILS % (AUTO) 0.9 % (0-2); EOSINOPHILS % (AUTO) 1.2 % (0-6); HEMATOCRIT 42.6 % (37.9-51.0); HEMOGLOBIN 14.8 g/dL (13.5-17.0); MEAN CORPUSCULAR HEMOGLOBIN 31.5 pg (27.0-33.4); MEAN CORPUSCULAR HGB CONC 34.8 g/dL (32.0-36.0); MEAN CORPUSCULAR VOLUME 91 fl (80-97); MONOCYTES % (AUTO) 11.1 % (3-13); PLATELET COUNT 104 10^3/uL (150-450); RED CELL DISTRIBUTION WIDTH 13.7 % (11.5-14.0); SEGMENTED NEUTROPHILS % (AUTO) 67.8 % (42-78); TOTAL CELLS COUNTED % (AUTO) 100 %; WHITE BLOOD COUNT 8.6 10^3/uL (4.0-10.5)
[2019-03-14 08:33] LABS: ALANINE AMINOTRANSFERASE 31 U/L (21-72); ALBUMIN 3.9 g/dL (3.5-5.0); ALKALINE PHOSPHATASE 68 U/L (38-126); ANION GAP 11 (5-19); ASPARTATE AMINO TRANSFERASE 35 U/L (17-59); BILIRUBIN,DIRECT 0.4 mg/dL (0.0-0.4); BILIRUBIN,TOTAL 0.9 mg/dL (0.2-1.3); BLOOD UREA NITROGEN 23 mg/dL (7-20); CALCIUM 9.2 mg/dL (8.4-10.2); CARBON DIOXIDE 22 mmol/L (22-30); CHLORIDE 106 mmol/L (98-107); GLUCOSE 126 mg/dL (75-110); SODIUM 139.4 mmol/L (137-145); TOTAL PROTEIN 7.5 g/dL (6.3-8.2)
[2019-03-14] MEDS: ENOXAPARIN SODIUM INJ 40 MG/0.4 ML DISP.SYRIN SUBCUT SCH (09:33)
[2019-03-14] MEDS: BUTALB/ACETAMINOPHEN/CAFFEINE 1 TAB EACH PO PRN (14:04)
[2019-03-14 19:13] VITALS: BP 157/89
--- NOTE | 2019-03-14 20:13 | PDOC DISCHARGE SUMMARY ---
General - Admit/Disc Date/PCP Admission Date/Primary Care Provider: 03/10/19 12:45 SHITAL BARKER MD Discharge Date: 03/14/19 - Discharge Diagnosis (1) Transient ischemic attack Is this a current diagnosis for this admission?: Yes (2) T2DM (type 2 diabetes mellitus) Is this a current diagnosis for this admission?: Yes (3) Headache Is this a current diagnosis for this admission?: Yes - Additional Information Resuscitation Status: Full Code Discharge Diet: As Tolerated Discharge Activity: Activity As Tolerated, Balance Activity w/Rest Prescriptions: RX: Atorvastatin Calcium [Lipitor 80 mg Tablet] 80 mg PO QHS #90 tablet RX: Butalb/Acetaminophen/Caffeine [Fioricet (50-325-40 mg) Tablet] 1 tab PO Q4HP PRN #60 each PRN Reason: RX: Aspirin [Aspir-Shwetha] 325 mg PO DAILY PRN #90 PRN Reason: Home Medications: RX: Glimepiride 2 mg PO DAILY 02/15/18 RX: Glimepiride 4 mg PO DAILY 02/15/18 RX: Lisinopril 40 mg PO DAILY 02/15/18 RX: Pioglitazone HCl 15 mg PO DAILY 02/15/18 RX: Amlodipine Besylate [Norvasc 10 mg Tablet] 10 mg PO DAILY 03/10/19 RX: Acetaminophen [Tylenol 325 mg Tablet] 650 mg PO Q4HP PRN tablet 03/14/19 RX: Aspirin [Aspir-Shwetha] 325 mg PO DAILY PRN #90 03/14/19 RX: Atorvastatin Calcium [Lipitor 80 mg Tablet] 80 mg PO QHS #90 tablet 03/14/19 RX: Butalb/Acetaminophen/Caffeine [Fioricet (50-325-40 mg) Tablet] 1 tab PO Q4HP PRN #60 each 03/14/19 History of Present Illness History of Present Illness: SOMMER BOYLE is a 69 year old male, He has a history of type 2 diabetes mellitus, hypertension, hyperlipidemia, morbid obesity,he came to the emergency room for evaluation of transient loss of speech, numbness of the left side of his body, hemisensory loss, loss of strength of the left side of his body, he also had a headache, before these symptoms he had episode of extreme shakiness of his body. In the emergency room a CT scan of the head was done, it was negative for any acute pathology, MRI of the brain could not be done because he has a metallic object in his left upper arm, the object was attractive to a magnet Hospital Course Hospital Course: Patient was admitted for the management of transient ischemic attack, he was treated with Aggrenox antiplatelet therapy, atorvastatin for cholesterol he was initially admitted for observation, he has persistent headache the initial CAT scan of the brain was negative for any acute pathology subsequent CAT scan with contrast was done it was negative MRI of the brain could not be done because he has a metallic device in his upper extremities, and ultimately device. Yesterday he had leukocytosis there was no fever, intracranial bleed was considered as a potential cause of the headache, but the headache is not a thunderclap headache I felt he should get a lumbar puncture but unfortunately he is on antiplatelet this meant he has to be off platelet for 5 days, today he was at his normalize patient is much better the headache is resolved suggesting that intracranial hemorrhage is very unlikely Physical Exam Vital Signs: Temp Pulse Resp BP Pulse Ox 98.1 F 77 16 157/89 H 98 03/14/19 19:11 03/14/19 19:11 03/14/19 19:11 03/14/19 19:11 03/14/19 19:11 Intake & Output 03/13/19 03/14/19 03/15/19 06:59 06:59 06:59 Intake Total 540 942 575 Balance 540 942 575 Weight 106.2 kg 104.6 kg General appearance: PRESENT: no acute distress, well-developed, well-nourished Head exam: PRESENT: atraumatic, normocephalic Eye exam: PRESENT: conjunctiva pink, EOMI, PERRLA Ear exam: PRESENT: normal external ear exam Mouth exam: PRESENT: moist, tongue midline Neck exam: PRESENT: full ROM Respiratory exam: PRESENT: clear to auscultation dieter Cardiovascular exam: PRESENT: RRR, +S1, +S2 Pulses: PRESENT: normal dorsalis pedis pul, +2 pedal pulses bilateral Vascular exam: PRESENT: normal capillary refill GI/Abdominal exam: PRESENT: normal bowel sounds, soft Rectal exam: PRESENT: deferred Neurological exam: PRESENT: alert, CN II-XII grossly intact Psychiatric exam: PRESENT: appropriate affect, normal mood Skin exam: PRESENT: dry, intact, warm. ABSENT: cyanosis, rash Results Laboratory Results: 03/14/19 07:53 03/14/19 07:53 03/14/19 03/14/19 07:53 07:53 WBC 8.6 RBC 4.70 Hgb 14.8 Hct 42.6 MCV 91 MCH 31.5 MCHC 34.8 RDW 13.7 Plt Count 104 L Seg Neutrophils % 67.8 Lymphocytes % 19.0 Monocytes % 11.1 Eosinophils % 1.2 Basophils % 0.9 Absolute Neutrophils 5.8 Absolute Lymphocytes 1.6 Absolute Monocytes 1.0 Absolute Eosinophils 0.1 Absolute Basophils 0.1 Sodium 139.4 Potassium 4.0 Chloride 106 Carbon Dioxide 22 Anion Gap 11 BUN 23 H Creatinine 1.19 Est GFR ( Amer) > 60 Est GFR (Non-Af Amer) > 60 Glucose 126 H Calcium 9.2 Total Bilirubin 0.9 AST 35 ALT 31 Alkaline Phosphatase 68 Total Protein 7.5 Albumin 3.9 03/10/19 03/10/19 03/10/19 09:37 09:37 18:34 Creatine Kinase 72 59 CK-MB (CK-2) 0.35 Troponin I < 0.012 03/10/19 03/11/19 03/11/19 18:34 00:21 00:21 Creatine Kinase 64 CK-MB (CK-2) 0.26 0.28 Troponin I < 0.012 < 0.012 03/11/19 03/11/19 03/13/19 04:14 04:14 10:31 Creatine Kinase 68 80 CK-MB (CK-2) 0.31 Troponin I < 0.012 03/13/19 10:31 Creatine Kinase CK-MB (CK-2) 0.25 Troponin I < 0.012 Impressions: Carotid Doppler Study 03/11/19 00:00 IMPRESSION: NO HEMODYNAMICALLY SIGNIFICANT STENOSIS. Head CT 03/13/19 00:00 IMPRESSION: 1. No significant interval changes since the prior examination dated 03/10/2019. No acute intracranial abnormality. 2. Mild atrophy. 3. Chronic mild left maxillary sinus disease. EVIDENCE OF ACUTE STROKE: NO. Qualifiers - * PATIENT BEING DISCHARGED WITH ANY OF THE FOLLOWING DIAGNOSIS: No VTE patient discharged on overlapping Therapy?: No Reason(s) for not prescribing Overlap Therapy:: Not indicated Stroke Pt being discharged on Anti-thrombolytic therapy?: No Reason(s) for not prescribing Anti-thrombolytic therapy:: Not indicated Stroke Pt being discharged on Anti-coagulation therapy?: Yes Stroke Pt being discharged on Statins?: Yes [place] Pt being discharged on Aspirin therapy?: No Reason(s) for not prescribing Aspirin therapy:: Not indicated [place] Pt being discharged on Statins?: No Reason(s) for not prescribing Statin therapy:: Not indicated [place] Pt discharged ACEI/ARBS?: No Reason(s) for not prescribing ACEI/ARBS:: Not indicated Acute Heart Failure - Is this a Heart Failure Patient?: No Documentation of LVEF assessment?: No, Document reason LVEF < 40%?: No- if no continue to question #3 3. Anticoagulant therapy for permanect/persistent/paraoxysmal Afib or Aflutter: N/A Follow-up Appointment scheduled within 7 days?: Yes
== END 2019-03-14 19:25 | disposition home or self-care (01) | DRG 69 ==
LOC: ER 08:40 → EH 12:45 → 3W 15:33
PROVIDERS: ADMIT Internal Medicine; ATTEND Internal Medicine
DX: G45.9 Transient cerebral ischemic attack, unspecified (principal); E11.42 Type 2 diabetes mellitus with diabetic polyneuropathy; E66.01 Morbid (severe) obesity due to excess calories; I10 Essential (primary) hypertension; E78.5 Hyperlipidemia, unspecified; R20.0 Anesthesia of skin; G43.019 Migraine without aura, intractable, without status migrainosus; Z68.38 Body mass index [BMI] 38.0-38.9, adult; R29.702 NIHSS score 2
CPT/HCPCS: 36415; 70450; 70470; 80053; 80061; 81001; 82550; 82553; 82962; 83605; 84484; 85025; 85610; 85730; 87040; 93005; 93010; 93306; 93880; 99285; J1650; J3490

== ENCOUNTER 2019-05-25 08:41 | Emergency (ER) | payer MEDICARE, OTHER ==
--- NOTE | 2019-05-25 09:58 | ER Document Report ---
HPI - HPI Patient complains to provider of: sore throat Time Seen by Provider: 05/25/19 09:56 Onset: Yesterday Onset/Duration: Gradual, Waxing and waning Severity: Mild Pain Level: 2 Context: 69 Yr old male pt, with the listed pmh, here presenting with sore throat for 2 days. patient states the pain is an 4/10 sharp achiness that increases with swallowing and decreases with rest. Patient states no acute respiratory distress. Patient states no difficulty swallowing or handling secretions. Patient denies any ear pain, cp, sob, fever, cough, vomiting, diarrhea, abd pain, vision changes, dizziness, rash, or headache. Patient states nothing is making the symptoms better and is here in the emergency department for symptom control. no recent antibiotics or steroids. no hx of asthma. hx of diabetes but states sugars are well controlled. utd on shots. Patient denies any other complaints at this time. pt states positive family exposure to strep via swab and states his also has it. pt states families strep wasn't confirmed until culture came back positive for it as the initial swab in office was negative. states family is on abx and feeling better. Similar symptoms previously: Yes Recently seen / treated by doctor: No - ROS Systems Reviewed and Negative: Yes All other systems reviewed and negative - to include 10 systems, unless mentioned in the hpi - CONSTITUTIONAL Constitutional: DENIES: Fever, Chills - EENT EENT: REPORTS: Sore Throat - REPRODUCTIVE Reproductive: DENIES: : Past Medical History - General Information source: Patient - Social History Smoking Status: Never Smoker Frequency of alcohol use: None Drug Abuse: None Lives with: Family, Spouse/Significant other Family History: Reviewed & Not Pertinent, DM Patient has suicidal ideation: No Patient has homicidal ideation: No - Past Medical History Cardiac Medical History: Reports: Hx Hypertension Endocrine Medical History: Reports: Hx Diabetes Mellitus Type 2 Renal/ Medical History: Denies: Hx Peritoneal Dialysis - Immunizations Immunizations up to date: Yes Hx Diphtheria, Pertussis, Tetanus Vaccination: Yes Vertical Provider Document - CONSTITUTIONAL Agree With Documented VS: Yes Exam Limitations: No Limitations General Appearance: No Apparent Distress Notes: Vital signs: All vital signs were reviewed per nursing notes. Gen. appearance: Nontoxic, patient of stated age, sitting comfortably in the bed. pleasant, obese elderly male, smiling, speaking in full sentences, in no sign of pain or resp distress, at bedside Psychiatric: Alert and oriented x3, pleasant and very conversational, normal affect. Skin: Warm, pink, dry, normal turgor, no rashes. ENT: Normocephalic, atraumatic, pupils are equal and reactive to light, extraocular muscles intact, tympanic membranes normal, mucosal membranes moist, pink conjunctiva, there is moderate pharyngeal erythema and no tonsillar exudate or hypertrophy bilaterally. There are no signs of abscess. The uvula is midline. There is no submandibular harness. There is no trismus. There is no tenderness over the sternocleidomastoid or thyroid cartilage. no drooling, tripoding, or hot potato voice Neck: Supple, no tenderness, no lymphadenopathy. CV: Regular rate and rhythm, Lungs: Clear to auscultation bilaterally, no wheezes, symmetrical chest rise. Abdomen: Soft, nontender, nondistended, good bowel sounds, no rebound, rigidity, guarding, or peritoneal signs. No CVA tenderness bilaterally. This is a nonacute abdomen. No tenderness over McBurney's point. Back: no tenderness Extremities: Full rom, full strength, good pulses, normal gait, no swelling or ttp of extremities. good hand forklift picker. brisk cap refill. Neuro: Cranial nerves II through XII intact, normal speech, cerebellar fxn intact, motor and sensation intact - INFECTION CONTROL TRAVEL OUTSIDE OF THE [place] IN LAST 30 DAYS: No Course - Re-evaluation Re-evalutation: 05/25/19 09:57 Pt here for sore throat and uri sx since yest. pos hx of exposure to fam members with confirmed strep via culture and neg swab, requesting abx. pts rapid strep was neg. throat culture pending. will dc with pcn vk and advised will call with culture results and to hold off on abx for a few days and then start if not feeling better or until culture results return upon which we will call with any positive results. advised sx care. otc cold/sore throat meds for any sx. push fluids. tylenol or motrin prn any pain or fever if not allergic. advised to f/u with pcp in 1-2 days. return for any worsening symptoms. vss. well appearing. satting well on ra. neurononfocal. pt understands and agrees to plan. On reexam, pt improved with tx listed. remained stable. nontoxic. well appea ring. pain controlled. tolerating po. requesting to go home. Documentation achieved through voice recording which my lead to some occasional accidental typographical errors. Extensive efforts have been made to proof read documentation to make sure these are the least as possible. Category Date Time Status Rapid Strep [DIRECT STREP,RAPID] [[place]] Stat Lab 05/25/19 09:15 Completed THROAT CULTURE [[facility]] Routine Lab 05/25/19 09:15 Completed - Vital Signs Vital signs: Temp Pulse Resp BP Pulse Ox 98.6 F 83 18 120/63 95 05/25/19 08:44 05/25/19 08:44 05/25/19 08:44 05/25/19 08:44 05/25/19 08:44 Temp Pulse Resp BP Pulse Ox 05/25/19 11:14 98.9 F 72 16 123/70 98 05/25/19 08:44 98.6 F 83 18 120/63 95 Discharge - Discharge Clinical Impression: Pharyngitis Qualifiers: Pharyngitis/tonsillitis etiology: unspecified etiology Qualified Code(s): J02.9 - Acute pharyngitis, unspecified Condition: Good Disposition: HOME, SELF-CARE Instructions: Sore Throat ([facility]) Additional Instructions: Follow-up with PCP in 1 to 2 days. Return for any worsening symptoms. tylenol or motrin as needed for any pain or fever if not allergic. take the medication as prescribed. salt water gargles. drink plenty of fluids. we will call you with any abnormal results that require change in plan of care. wait a few days before starting the antibiotic as discussed and then start it if you are not feeling any better. Prescriptions: Penicillin V Potassium [Penicillin Vk 500 mg Tablet] 500 mg PO BID #20 tablet Referrals: SHITAL BARKER MD [Primary Care Provider] - Follow up as needed
[2019-05-25 11:15] VITALS: BP 123/70
== END 2019-05-25 11:19 | disposition home or self-care (01) ==
LOC: ER 08:41
DX: J02.9 Acute pharyngitis, unspecified (principal); I10 Essential (primary) hypertension; E11.9 Type 2 diabetes mellitus without complications
CPT/HCPCS: 87070; 87077; 87880; 99283

== ENCOUNTER 2019-09-09 15:32 | Emergency (ER) | payer MEDICARE, MEDICAID ==
[2019-09-09 15:37] VITALS: BP 130/79
--- NOTE | 2019-09-09 15:41 | ER Document Report ---
ED ENT - General Chief Complaint: Sinus Congestion Stated Complaint: SINUS CONGESTION Time Seen by Provider: 09/09/19 15:37 Primary Care Provider: SHITAL BARKER MD [Primary Care Provider] - Follow up as needed Mode of Arrival: Ambulatory Information source: Patient TRAVEL OUTSIDE OF THE [place] IN LAST 30 DAYS: No - Related Data Allergies/Adverse Reactions: No Known Allergies Allergy (Verified 09/09/19 15:41) Past Medical History - General Information source: Patient - Social History Smoking Status: Never Smoker Frequency of alcohol use: None Drug Abuse: None Lives with: Family Family History: Reviewed & Not Pertinent, DM - Past Medical History Cardiac Medical History: Reports: Hx Hypertension Pulmonary Medical History: Reports: None EENT Medical History: Reports: None Neurological Medical History: Reports: None Endocrine Medical History: Reports: Hx Diabetes Mellitus Type 2 Renal/ Medical History: Reports: None Malignancy Medical History: Reports None GI Medical History: Reports: None Musculoskeletal Medical History: Reports Hx Musculoskeletal Trauma Skin Medical History: Reports None Psychiatric Medical History: Reports: None Traumatic Medical History: Reports: Hx Fractures - Ribs Infectious Medical History: Reports: None Surgical Hx: Negative Past Surgical History: Reports: None - Immunizations Immunizations up to date: Yes Hx Diphtheria, Pertussis, Tetanus Vaccination: Yes Review of Systems - Review of Systems Constitutional: Recent illness EENT: Nose congestion, Nose discharge, Sinus pressure, Sinus discharge Cardiovascular: No symptoms reported Respiratory: Cough Gastrointestinal: No symptoms reported Genitourinary: No symptoms reported Male Genitourinary: No symptoms reported Musculoskeletal: No symptoms reported Skin: No symptoms reported Hematologic/Lymphatic: No symptoms reported Neurological/Psychological: No symptoms reported -: Yes All other systems reviewed and negative Physical Exam - Vital signs Vitals: Temp Pulse BP Pulse Ox 98.7 F 75 130/79 H 96 09/09/19 15:36 09/09/19 15:36 09/09/19 15:36 09/09/19 15:36 Interpretation: Normal - General General appearance: Appears well, Alert - HEENT Head: Normocephalic, Atraumatic Eyes: Normal Pupils: PERRL Ears: Normal External canal: Normal Tympanic membrane: Normal Sinus: Normal Nasal: Purulent discharge, Swelling Mouth/Lips: Normal Mucous membranes: Normal Pharynx: Post nasal drainage Neck: Normal - Respiratory Respiratory status: No respiratory distress Chest status: Nontender Breath sounds: Nonproductive cough Chest palpation: Normal - Cardiovascular Rhythm: Regular Heart sounds: Normal auscultation Murmur: No - Abdominal Inspection: Normal Distension: No distension Bowel sounds: Normal Tenderness: Nontender Organomegaly: No organomegaly - Back Back: Normal, Nontender - Extremities General upper extremity: Normal inspection, Nontender, Normal color, Normal ROM, Normal temperature General lower extremity: Normal inspection, Nontender, Normal color, Normal ROM, Normal temperature, Normal weight bearing. No: Mariaa's sign - Neurological Neuro grossly intact: Yes Cognition: Normal Orientation: AAOx4 Bivins Coma Scale Eye Opening: Spontaneous Doroteo Coma Scale Verbal: Oriented Doroteo Coma Scale Motor: Obeys Commands Bivins Coma Scale Total: 15 Speech: Normal Motor strength normal: LUE, RUE, LLE, RLE Sensory: Normal - Psychological Associated symptoms: Normal affect, Normal mood - Skin Skin Temperature: Warm Skin Moisture: Dry Skin Color: Normal Course - Vital Signs Vital signs: Temp Pulse Resp BP Pulse Ox 98.7 F 75 130/79 H 96 09/09/19 15:36 09/09/19 15:36 09/09/19 15:36 09/09/19 15:36 Discharge - Discharge Clinical Impression: URI (upper respiratory infection) Qualifiers: URI type: unspecified viral URI Qualified Code(s): J06.9 - Acute upper respiratory infection, unspecified Condition: Stable Disposition: HOME, SELF-CARE Additional Instructions: UPPER RESPIRATORY ILLNESS: You have a viral infection of the respiratory passages -- a "cold." This common infection causes nasal congestion, drainage, and often sore throat and cough. It is highly contagious. The disease usually lasts about 10 to 14 days. There is no "cure" for the viral infection -- it must run its course. If there is a complication, such as bacterial infection in the nose, sinuses, middle ear, or bronchial tubes, antibiotics may be required. The antibiotics won't affect the virus. Drink plenty of fluids. A humidifier may help. An expectorant medication or decongestant may make you more comfortable. Use acetaminophen or ibuprofen for fever or aches. See the doctor if fever persists over two days, if there is any significant worsening of your symptoms, or if you simply fail to improve as expected. Do not use any [id number] antihistamines or cough or cold medications. The only [id number] medication you can use for the symptoms is Coricidin HP or 1 of the medications the pharmacist tells you are safe for high blood pressure. You can also use Flonase nasal spray this is a nasal spray that will help with cold symptoms decrease the inflammation and swelling to the nose. T his is [id number]. Another thing you can do is nasal saline gel apply with a Q-tip to the inner aspect of your nose just inside your nose. You can also use salt and soda solution gargles which will move the nasal drainage from the back your throat and decrease your cough. Patient presents with multiple vague complaints that did not appear to be concerning for any acute life-threatening pathology. Vitals are within normal limits at triage and at time of discharge. Physical examination is unremarkable. Patient has tolerated oral intake without difficulty. Patient was not noted to be in distress at any point during their ER visit. At this time, based on the reassuring evaluation, I do not suspect an acute [place], pulmonary embolus, aortic dissection, acute intra-abdominal pathology, stroke, or sepsis.Will discharge with return precautions and follow-up recommendations. Verbal discharge instructions given a the bedside and opportunity for questions given. Medication warnings reviewed. Patient is in agreement with this plan and has verbalized understanding of return precautions and the need for primary care follow-up in the next 24-72 hours. Milophene addendum her 11 1 worsening Salt and soda solution 1 quart of water 1 tablespoon of salt 1 teaspoon of baking soda Mixed 3 ingredients together and boil for 1 minute Placed in a covered quart jar Use 1/2 ounce of cold solution to gargle 3 times a day to check your sugar USE OF ACETAMINOPHEN (Tylenol): Acetaminophen may be taken for pain relief or fever control. It's much safer than aspirin, offering a wider range of "safe" dosages. It is safe during . Some brand names are Tylenol, Panadol, Datril, Anacin 3, Tempra, and Liquiprin. Acetaminophen can be repeated every four hours. The following are m aximum recommended dosages: >89 pounds or adults 650 mg to 900 mg Acetaminophen can be repeated every four hours. Maximum dose not to exceed 4000 mg a day. FOLLOW-UP CARE: If you have been referred to a physician for follow-up care, call the physicians office for an appointment as you were instructed or within the next two days. If you experience worsening or a significant change in your symptoms, notify the physician immediately or return to the Emergency Department at any time for re-evaluation. Forms: Elevated Blood Pressure Referrals: JORGE BEVERLY MD [ACTIVE STAFF] - 09/11/19 SHITAL BARKER MD [Primary Care Provider] - 09/11/19
== END 2019-09-09 15:57 | disposition home or self-care (01) ==
LOC: ER 15:32
DX: J06.9 Acute upper respiratory infection, unspecified (principal); R09.81 Nasal congestion; R09.89 Other specified symptoms and signs involving the circulatory and respiratory systems; I10 Essential (primary) hypertension; E11.9 Type 2 diabetes mellitus without complications
CPT/HCPCS: 82962; 99283

== ENCOUNTER 2019-11-18 12:52 | Emergency (ER) | payer MEDICARE, MEDICAID ==
[2019-11-18] MEDS ORDERED: BENZONATATE 100 MG CAPSULE PO ONE (13:19)
--- NOTE | 2019-11-18 13:22 | ER Document Report ---
ED General - General Chief Complaint: Cough Stated Complaint: COUGH,SINUS CONGESTION Time Seen by Provider: 11/18/19 13:18 Primary Care Provider: SHITAL BARKER MD [Primary Care Provider] - Follow up in 3-5 days Notes: 69-year-old male presents with productive cough with green sputum, sinus drainage, nasal congestion, and "low-grade fever" for 3 days. Patient states his grand child is coming to visit today and he just wants to be checked out to make sure he does not have the flu. Denies any nausea/vomiting, abdominal pain, chest pain, shortness of breath. TRAVEL OUTSIDE OF THE [place] IN LAST 30 DAYS: No - Related Data Allergies/Adverse Reactions: No Known Allergies Allergy (Verified 11/18/19 13:13) Past Medical History - Social History Smoking Status: Unknown if Ever Smoked Family History: Reviewed & Not Pertinent, DM - Past Medical History Cardiac Medical History: Reports: Hx Hypertension Endocrine Medical History: Reports: Hx Diabetes Mellitus Type 2 Renal/ Medical History: Denies: Hx Peritoneal Dialysis Musculoskeletal Medical History: Reports Hx Musculoskeletal Trauma Traumatic Medical History: Reports: Hx Fractures - Ribs - Immunizations Immunizations up to date: Yes Hx Diphtheria, Pertussis, Tetanus Vaccination: Yes Review of Systems - Review of Systems Notes: Constitutional: Positive for fever. HENT: Positive for sinus drainage nasal congestion, productive cough. Negative for sore throat. Eyes: Negative for visual changes. Cardiovascular: Negative for chest pain. Respiratory: Negative for shortness of breath. Gastrointestinal: Negative for abdominal pain, vomiting or diarrhea. Genitourinary: Negative for dysuria. Musculoskeletal: Negative for back pain. Skin: Negative for rash. Neurological: Negative for headaches, weakness or numbness. 10 point ROS negative except as marked above and in HPI. Physical Exam - Vital signs Vitals: Temp Pulse Resp BP Pulse Ox 98.2 F 78 18 122/63 95 11/18/19 13:08 11/18/19 13:08 11/18/19 13:08 11/18/19 13:08 11/18/19 13:08 - Notes Notes: GENERAL: Well-appearing, well-nourished and in no acute distress. HEAD: Atraumatic, normocephalic. EYES: Extraocular movements intact, sclera anicteric, conjunctiva are normal. NECK: Normal range of motion, supple without lymphadenopathy or JVD. LUNGS: Nonproductive cough.Breath sounds clear to auscultation bilaterally and equal. No wheezes rales or rhonchi. HEART: Regular rate and rhythm without murmurs, rubs or gallops. EXTREMITIES: Normal range of motion, no pitting or edema. No clubbing or cyanosis. NEUROLOGICAL: Cranial nerves II through XII grossly intact. Normal speech, normal gait. PSYCH: Normal mood, normal affect. SKIN: Warm, Dry, normal turgor, no rashes or lesions noted. Course - Re-evaluation Re-evalutation: 11/18/19 Nontoxic well appearing 69-year-old male presents with URI symptoms. Patient is concerned about flu due to his grandchild visiting him today. Lungs clear to auscultation bilaterally. Regular rate and rhythm. PE is otherwise unremarkable. Flu and chest x-ray were ordered. 11/18/19 14:41 Flu neg. CXR shows no pneumonia and is otherwise negative. DIscussed all results with pt and pt's . Strict return precautions discussed/given. Pt given close follow up with PCP. Pt also given prescriptions for tessalon perles and flonase and instructed to get otc coricidin HBP due to HTN. Pt voices understanding and agrees with plan of care. - Vital Signs Vital signs: Temp Pulse Resp BP Pulse Ox 98.2 F 78 18 122/63 95 11/18/19 13:08 11/18/19 13:08 11/18/19 13:08 11/18/19 13:08 11/18/19 13:08 Discharge - Discharge Clinical Impression: Viral URI with cough Condition: Stable Disposition: HOME, SELF-CARE Instructions: Upper Respiratory Illness ([facility]), Viral Syndrome ([facility]) Additional Instructions: Your flu test is negative. Your chest x-ray shows no pneumonia and is otherwise normal. Please take medication as prescribed. Please take OTC Coricidin HBP. Please follow up with your primary care doctor in 2-3 days. Return to ER immediately if you start having any worsening symptoms, including chest pain, coughing up blood, fever, vomiting, abdominal pain, confusion, or any other symptoms that are concerning to you. Prescriptions: Benzonatate [Tessalon Perles 100 mg Capsule] 100 mg PO Q8HP PRN #40 capsule PRN Reason: Fluticasone Propionate [Flonase Nasal [place] 50 Mcg/[place] 16 gm] 1 spray NASL Q12 #1 inhaler Referrals: HSITAL BARKER MD [Primary Care Provider] - Follow up in 3-5 days
--- NOTE | 2019-11-18 13:55 | RADIOLOGY REPORT (SQ) ---
EXAM DESCRIPTION: CHEST 2 VIEWS COMPLETED DATE/TIME: 11/18/2019 1:39 pm REASON FOR STUDY: "low grade fever," cough COMPARISON: None. EXAM PARAMETERS: NUMBER OF VIEWS: two views TECHNIQUE: Digital Frontal and Lateral radiographic views of the chest acquired. RADIATION DOSE: NA LIMITATIONS: none FINDINGS: LUNGS AND PLEURA: No opacities, masses or pneumothorax. No pleural effusion. MEDIASTINUM AND HILAR STRUCTURES: No masses or contour abnormalities. HEART AND VASCULAR STRUCTURES: Heart normal size. No evidence for failure. BONES: No acute findings. HARDWARE: None in the chest. OTHER: No other significant finding. IMPRESSION: NO ACUTE RADIOGRAPHIC FINDING IN THE CHEST. TECHNICAL DOCUMENTATION: JOB ID: [id number] 2010 [employer]- All Rights Reserved Reading location - IP/workstation name: [email or web address]
[2019-11-18 14:30] LABS: A TYPE INFLUENZA AG NEGATIVE (NEGATIVE); B INFLUENZA AG NEGATIVE (NEGATIVE)
[2019-11-18 14:59] VITALS: BP 117/90
== END 2019-11-18 14:53 | disposition home or self-care (01) ==
LOC: ER 12:52
DX: J06.9 Acute upper respiratory infection, unspecified (principal); B97.89 Other viral agents as the cause of diseases classified elsewhere; R05 Cough; R09.81 Nasal congestion; I10 Essential (primary) hypertension; E11.9 Type 2 diabetes mellitus without complications
CPT/HCPCS: 99283; 87804; 71046; A9270